=== PATIENT | female | born 1945 | race Caucasian/White ===

== ENCOUNTER → 2018-03-16 | Outpatient (CLI) | payer OTHER, MEDICARE | LOC: FIMAGING 10:37 | PROVIDERS: ATTEND Neurological Surgery | DX: Z13.828 Encounter for screening for other musculoskeletal disorder (principal); M21.751 Unequal limb length (acquired), right femur; M41.26 Other idiopathic scoliosis, lumbar region; M41.24 Other idiopathic scoliosis, thoracic region; M51.36 Other intervertebral disc degeneration, lumbar region ==

== ENCOUNTER → 2018-04-14 | Outpatient (CLI) | payer OTHER, MEDICARE | LOC: BHFA 09:00 | PROVIDERS: ATTEND Internal Medicine Cardiovascular Disease | DX: Z01.810 Encounter for preprocedural cardiovascular examination (principal); R00.1 Bradycardia, unspecified ==

== ENCOUNTER 2018-04-22 10:17 | Inpatient (IN) | payer OTHER, MEDICARE ==
[2018-04-22] MEDS ORDERED: ACETAMINOPHEN 325 MG TAB PO PRN (14:19)
[2018-04-22] MEDS ORDERED: DIAZEPAM 5 MG TAB PO PRN (14:19)
[2018-04-22] MEDS ORDERED: CARBOXYMETHYLCELLULOSE 1% 0.4 ML DROPERETTE EACHEYE PRN (14:19)
[2018-04-22] MEDS ORDERED: SCOPOLAMINE HYDROBROMIDE 1 MG/3 DAYS PATCH TD SCH (14:30)
[2018-04-22] MEDS: GABAPENTIN 100 MG CAP PO SCH ×2 (15:38→20:15)
[2018-04-22] MEDS ORDERED: POLYETHYLENE GLYCOL 3350 17 GM PKT PO SCH (16:00)
--- NOTE | 2018-04-22 16:41 | GHP ---
POST ADMISSION PHYSICIAN EVALUATION AND REHABILITATION TREATMENT PLAN. DATE OF ADMISSION: 04/22/2018 DATE OF EVALUATION: 04/22/2018. TIME OF EVALUATION: 1455. REFERRING FACILITY: [facility]. IMPAIRMENT GROUP: [id number]. DATE OF ONSET: 04/16/2018. DATE OF SURGERY: 04/22/2018. REFERRING PHYSICIAN: Dr. Watkins. CONSULTING PHYSICIAN: She had surgery with Dr. Kuhn of the neurosurgery service. REHABLITATION DIAGNOSIS: Debility status post lumbar spinal surgery. ETIOLOGIC DIAGNOSIS: Other nontraumatic spinal cord dysfunction. HISTORY OF PRESENT ILLNESS: This patient came to [facility] for elective surgery. She had intractable back pain and progressive bilateral lower extremity weakness. She had failed conservative therapy. She had a history of severe degenerative lumbar scoliosis and critical spinal stenosis. She underwent a T9 to iliac fusion with L1-L4 total lumbar interbody fusion. She had approximately 1600 cc of blood loss during surgery and required a postoperative transfusion for symptomatic hypotension. She had atrial fibrillation after her surgery. She was loaded on amiodarone and returned to normal sinus rhythm, and her metoprolol was transiently increased and then continued on her prior dose. She required a second transfusion on 04/20/2018. STUDIES AND LABS IN THE HOSPITAL ON THE DAY OF DISCHARGE: Her hemoglobin is 8.3 , hematocrit 24.9. This is slightly improved from the previous day. CBC otherwise is overall within normal limits. Serum chemistry on the day of discharge showed normal renal function and electrolytes but for a low anion gap of 3. She has an elevated glucose at 116. She has a low calcium of 8, possibly corresponding with a low albumin. Phosphorus and magnesium were normal. PRECAUTIONS: She is a fall risk and she has orthopedic spinal precautions for the back. ACTIVE COMORBIDITIES: She has the tier 3 comorbidity of morbid obesity. She otherwise has no active tier 1, tier 2 or tier 3 comorbidities. PAST MEDICAL HISTORY: 1. Obesity. 2. Hypertension. 3. Restless legs syndrome, with lower and upper extremity symptoms. 4. Dyslipidemia. PAST SURGICAL HISTORY: She has had a cholecystectomy, and as a child she had tonsils and adenoids removed. PRE-HOSPITAL MEDICATIONS: I do not have a list. CURRENT MEDICATIONS: 1. Acetaminophen 325 mg p.o. daily p.r.n. 2. Artificial Tears 1 drop each eye daily p.r.n. 3. Cholecalciferol 1000 units p.o. daily. 4. Enoxaparin 40 mg subcutaneous daily. 5. Famotidine 20 mg p.o. twice daily. 6. Gabapentin 200 mg p.o. three times daily. 7. Hydrochlorothiazide 12.5 mg p.o. daily. 8. Lisinopril 20 mg p.o. daily. 9. Methocarbamol 750 mg p.o. four times daily. 10. Metoprolol-XL 12.5 mg p.o. at bedtime. 11. Morphine sulfate extended release 15 mg p.o. twice daily. 12. Multivitamin daily. 13. Ondansetron 4 mg p.o. q.8 hours p.r.n. 14. Oxycodone 5 to 10 mg p.o. q.4 hours p.r.n. 15. Polyethylene glycol 17 g p.o. three times daily. 16. Pramipexole 0.25 mg p.o. twice daily at 1600 and 2100. 17. Scopolamine patch. 18. Senna/docusate 1-2 tabs p.o. twice daily. 19. Diazepam 5 mg p.o. q.4 hours also prescribed on hospital discharge, but I have discontinued this and I have discontinued the scopolamine. ALLERGIES: Listed to levofloxacin. PSYCHOSOCIAL HISTORY: She is . She lives with her . She has a daughter who lives out of state. She has worked as a certified medical transcriptionist. She is a nonsmoker and uses only occasional alcohol. There are 16 steps to enter their home. FAMILY HISTORY: Noncontributory. REVIEW OF SYSTEMS: She reports her pain level is 2/10. She was able to ambulate with assistance of the nurse to the bathroom without more severe pain. She denies cough or dyspnea though she is on oxygen and has not been on oxygen previously. She reports she sleeps well. She reports her symptoms of restless leg also involve her arms and she needs to take pramipexole at 1600 and again at 2100 to keep them controlled and to allow normal sleep. She has had constipation and nausea, but moved her bowels yesterday. She has dry mouth. She notes swelling in her legs. She is concerned about right lower extremity weakness. It seems to her that it is weaker than it was prior to surgery. She denies dysuria or urinary frequency. Otherwise, a 10-point review of systems is negative. PHYSICAL EXAMINATION: VITAL SIGNS: Vitals are not yet available in the chart, but nurse reported that her systolic blood pressure was 101. This morning in the hospital blood pressure was 117/58, heart rate was 60, respiratory rate was 12, oxygen saturation was 99% on 2 L. Temperature was 37.1 degrees centigrade. Her weight is 81.6 kg for a body mass index of 32.9. GENERAL: This is an obese woman lying on her side in bed with a nasal cannula for oxygen, cooperative and in no acute distress. HEENT: Extraocular movements are intact. Pupils are equal, round, reactive to light. Mucous membranes are somewhat dry. NECK: Supple. HEART: Regular rate and rhythm. There is a systolic murmur heard best at the left sternal border. LUNGS: Clear to auscultation bilaterally. ABDOMEN: Obese, soft, nontender, nondistended with normoactive bowel sounds and no hepatosplenomegaly. EXTREMITIES: There is 1 to 2+ edema bilaterally pretibial. There is no cyanosis or clubbing. Radial pulses are 2+ bilaterally. Dorsalis pedis pulses are 2+ on the right and trace to 1+ on the left. NEUROLOGIC: She is alert and oriented x3. Cranial nerves 2 -12 are grossly intact. She is weak in the right lower extremity. Hip flexor, does not have antigravity strength. Quadriceps is approximately 4/5. Hamstring is 3 to 4/5. Otherwise motor strength is normal. Sensation is intact to light touch. Deep tendon reflexes are 2+ bilaterally at the biceps, patella and Achilles tendons. CURRENT LEVEL OF FUNCTION PER THE PREADMISSION SCREEN: She was on regular diet. For grooming she required standby assist to contact guard assist. Dressing required total assist done seated. She was modified independent for jonathan care after toileting. Her toilet transfer required contact guard and voice cues. She was continent of bowel and bladder. For bed mobility, she required moderate assist with the head of bed elevated. Transfers were done with minimal assist and voice cues. She used a front-wheeled walker. Seated balance required standby assist. Standing balance required contact guard to minimal assist. Endurance was fair. She was able to ambulate 120 feet with a front-wheeled walker, minimal assist and voice cues. Cognition and communication were within normal limits. She was considered a fall risk. There is no significant change on today's exam from the pre-admission screen. IMPRESSION: This patient is a 72-year-old woman with a long-standing progressive low back pain and degenerative scoliosis, who had elective surgery to correct this condition on 04/16/2018. Hospital stay was complicated by blood loss anemia requiring transfusions x2, pain with titration and addition of opiates and gabapentin, nausea, which was ultimately treated with a scopolamine patch, constipation, which is resolved, and hypoxemia. She was eventually medically stabilized and participating in therapies and appropriate for inpatient rehabilitation. Her goal is to complete a rehabilitation stay and then discharge to home with her and any durable medical equipment that she might need. For a safe discharge she will need to achieve independence with eating and grooming and modified independence for dressing, bed mobility, and ambulation with the least restrictive device on both level and unlevel surfaces. She will need to be able to climb and descend 16 stairs. It is likely she will continue to require assistance for meal preparation, shopping, and household management. She will need to be medically stabilized, including adequate blood pressure and normal heart rate, to tolerate activity, and her anemia will be improving. She will have therapy with Physical Therapy and Occupational Therapy for 90 minutes per day on 5-7 days of the week. Her expected duration of stay is 7-10 days. It is anticipated that upon discharge, she will continue to benefit from outpatient therapy, including occupational therapy and physical therapy. PLAN: 1. Debility in an obese woman who has had a major lumbar surgery on 04/16/2018. PT and OT to optimize mobility and activities of daily living to the independent to modified independent level. 2. Edema and heart murmur. Most likely the edema is from fluid overload including fluids that she received to maintain blood pressure and transfusions x2. She had labs drawn today in the hospital. I will add on a BNP to evaluate for heart failure. Will reduce lisinopril dose and increase hydrochlorothiazide dose for tomorrow morning in order to facilitate diuresis while maintaining blood pressure. She reports a transient history of elevated creatinine and reduced GFR, but I do not find this on review of labs in her chart going as far back as 04/14/2018. 3. Obesity. This will complicate her recovery, especially with the task of being able to climb 16 stairs. She will have a silk screen operator consult. She reports that she has intentionally lost weight through dieting prior to her surgery. 4. Hypertension. We will continue antihypertensives but will change lisinopril and hydrochlorothiazide as mentioned above. 5. Transient atrial fibrillation during her hospitalization with return to normal sinus rhythm after dosing with amiodarone. Continue metoprolol. Presumably the atrial fibrillation was due to the stresses of surgery and anemia. However, with the presence of a heart murmur, she might have mitral regurgitation and large atria. There is no echocardiogram available in the medical record. She will be monitored for any return of irregular heartbeat. 6. Pain management. Continue morphine SR 15 mg twice daily, oxycodone p.r.n., gabapentin 200 mg three times daily and acetaminophen currently ordered at 325 mg p.o. daily p.r.n. She will be assessed for pain. Will change acetaminophen to 1000 mg three times daily scheduled. 7. Constipation and nausea. Given constipation and dry mouth, will discontinue the scopolamine patch, but continue ondansetron p.r.n. Polyethylene glycol has been prescribed three times daily. This seems excessive and will be changed to daily. Continue senna 1-2 tabs twice daily and monitor for effectiveness of bowel regimen. If she continues to have nausea and requires frequent dosing of on ondansetron, will consider restarting scopolamine patch. 8. Subjective leg weakness on the right. She is not sure she has informed Dr. Kuhn, the surgeon, of this symptom. We will contact Dr. Kuhn and discuss with him. 9. Prophylaxis. She has much reduced mobility and she is at high risk for DVT due to obesity and age. Continue enoxaparin 40 mg subcutaneous daily until her mobility improves. FOLLOWUP: She is to see neurosurgeon, Dr. Kuhn after discharge. Her primary care provider is Dr. Makayla Draper in [place]. /[id number]/MODL MTDD
[2018-04-22] MEDS: PRAMIPEXOLE 0.25 MG TAB PO SCH ×2 (16:43→20:47)
[2018-04-22] MEDS: ACETAMINOPHEN 500 MG TAB PO SCH ×2 (16:44→20:15)
--- NOTE | 2018-04-22 17:09 | PDOREHIP ---
Admission [facility] - Admission - 3 Day Assessment Period Admission Date/Day 1: 04/22/18 Day 2: 04/23/18 Day 3: 04/24/18 - Active Diagnoses Comorbidities and Co-existing Conditions at Admission: 18691. None of the Above - Skin Conditions Unhealed Pressure Ulcer (1 or more/Stage 1 or >)-Admission: 0. No
[2018-04-22] MEDS: FAMOTIDINE 20 MG TAB PO SCH (20:15)
[2018-04-22] MEDS: METOPROLOL SUCCINATE XR 25 MG TAB PO SCH (20:16)
[2018-04-22] MEDS: SENNOSIDES/DOCUSATE SODIUM TAB PO SCH (20:20)
[2018-04-22] MEDS: morphINE SR 15 MG TAB PO SCH (20:46)
[2018-04-23] MEDS: oxyCODONE IR 5 MG TAB PO PRN ×2 (06:24→12:25)
[2018-04-23] MEDS: GABAPENTIN 100 MG CAP PO SCH ×3 (08:50→20:31)
[2018-04-23] MEDS: ENOXAPARIN 40 MG/0.4 ML SYR SC SCH (08:50)
[2018-04-23] MEDS: FAMOTIDINE 20 MG TAB PO SCH ×2 (08:50→22:20)
[2018-04-23] MEDS: HYDROCHLOROTHIAZIDE 25 MG TAB PO SCH (08:50)
[2018-04-23] MEDS: CHOLECALCIFEROL VIT D3 1,000 UNITS TAB PO SCH (08:50)
[2018-04-23] MEDS: morphINE SR 15 MG TAB PO SCH ×2 (08:50→20:29)
[2018-04-23] MEDS: LISINOPRIL 10 MG TAB PO SCH (08:50)
[2018-04-23] MEDS: ACETAMINOPHEN 500 MG TAB PO SCH ×3 (08:50→20:31)
[2018-04-23] MEDS: SENNOSIDES/DOCUSATE SODIUM TAB PO SCH ×2 (08:50→20:28)
[2018-04-23] MEDS: MULTIVITAMINS 1 EACH TAB PO SCH (08:50)
[2018-04-23] MEDS ORDERED: LISINOPRIL 20 MG TAB PO SCH (09:00)
[2018-04-23] MEDS ORDERED: Herbals/Supplements -Info Only PO SCH (09:00)
[2018-04-23] MEDS ORDERED: HYDROCHLOROTHIAZIDE 25 MG TAB PO SCH (09:00)
[2018-04-23] MEDS: POLYETHYLENE GLYCOL 3350 17 GM PKT PO SCH (10:17)
--- NOTE | 2018-04-23 12:12 | SOAPPROG ---
SOAP Progress Note Assessment/Plan: Assessment: Debility in an obese woman who had a major back surgery on 04/16/2018. * PT and OT to optimize mobility and activities of daily living to the independent to modified independent level. Edema and heart murmur. Most likely the edema is from fluid overload, including fluids that she received in the hospital to maintain blood pressure, and transfusions x2. Also a component of CHF, with elevated BNP on labs 2017. * Reduced lisinopril from 20 mg to 10 mg q.day starting 04/23/2018, and increased hydrochlorothiazide from 12.5 to 25 mg q.day. * Initiate compression stockings 04/23/2018. * Consider furosemide. * Daily weights. Hypertension. Adequate control. Pain management. Continue morphine SR 15 mg twice daily, oxycodone p.r.n., gabapentin 200 mg three times daily and acetaminophen to 1000 mg three times daily scheduled. Constipation and nausea. * Continue senna 1-2 tabs twice daily and polyethylene glycol daily. Monitor for effectiveness of bowel regimen. * Scopolamine patch discontinued due to dry mouth consultation. Ondansetron is available p.r.n. * With bowels moving, observe for resolution of abdominal discomfort. Dry mouth. Likely caused by opiates and gabapentin. Trial of Biotene starting 04/23/2018. Subjective leg weakness on the right. She is not sure she has informed Dr. Kuhn, the surgeon, of this symptom. * D/W ROSALIE Hadley for Dr. Curtis. If it worsens, would get MRI to rule out abnormal fluid collection etc. Obesity. This will complicate her recovery, especially with the task of being able to climb 16 stairs. She will have a lining maker consult. She reports that she has intentionally lost weight through dieting prior to her surgery. Transient atrial fibrillation during her hospitalization with return to normal sinus rhythm after dosing with amiodarone. Continue metoprolol. Monitor for irregular heartbeat. Prophylaxis. She has much reduced mobility and she is at high risk for DVT due to obesity and age. Continue enoxaparin 40 mg subcutaneous daily until her mobility improves. FOLLOWUP: She is to see neurosurgeon, Dr. Kuhn after discharge. Her primary care provider is Dr. Makayla Draper in [place]. 04/23/18 16:01 Subjective: Has back pain along the incision. Had right lower quadrant pain earlier today bowels moved again today currently she is not experiencing abdominal pain. Concerned that her tongue looked to read and still has dry mouth, though it is a little bit better with the discontinuation of the scopolamine patch. Notes that her legs are still swollen. Objective: Vital Signs Temp Pulse Resp BP Pulse Ox 37.2 C 59 L 18 117/59 L 94 04/23/18 08:00 04/23/18 08:00 04/23/18 08:00 04/23/18 08:50 04/23/18 08:00 04/22/18 04/23/18 04/24/18 05:59 05:59 05:59 Intake Total 850 Output Total 1650 Balance -800 Physical Exam - Physical Exam General Appearance: WD/WN, alert, no apparent distress, obese Respiratory: normal breath sounds, No crackles, No rhonchi, No wheezing Cardiac/Chest: regular rate, rhythm, edema (2+ bilateral pretibial), JVD, systolic murmur (The sternal border) Skin: normal color, warm/dry Neuro/Psych: no motor/sensory deficits, alert, normal mood/affect, oriented x 3 ICD10 Worksheet Patient Problems: Problems Problem Status Onset Fusion of spine of thoracolumbar region Acute
[2018-04-23] MEDS: PRAMIPEXOLE 0.25 MG TAB PO SCH ×2 (15:16→22:20)
[2018-04-23] MEDS: ONDANSETRON DISINTEGRATING 4 MG TAB PO PRN (20:28)
[2018-04-23] MEDS: METOPROLOL SUCCINATE XR 25 MG TAB PO SCH (20:29)
[2018-04-23] MEDS: BIOTENE DRY MOUTH ORAL RINSE 237 ML BTL MM PRN (23:07)
[2018-04-24] MEDS: oxyCODONE IR 5 MG TAB PO PRN ×2 (02:19→20:37)
[2018-04-24] MEDS: BIOTENE DRY MOUTH ORAL RINSE 237 ML BTL MM PRN ×2 (02:26→16:04)
[2018-04-24] MEDS: FAMOTIDINE 20 MG TAB PO SCH ×2 (08:12→20:31)
[2018-04-24] MEDS: ONDANSETRON DISINTEGRATING 4 MG TAB PO PRN ×2 (08:12→22:35)
[2018-04-24] MEDS: GABAPENTIN 100 MG CAP PO SCH ×3 (08:12→20:31)
[2018-04-24] MEDS: SENNOSIDES/DOCUSATE SODIUM TAB PO SCH ×2 (08:13→20:30)
[2018-04-24] MEDS: ACETAMINOPHEN 500 MG TAB PO SCH ×3 (08:13→16:13)
[2018-04-24] MEDS: MULTIVITAMINS 1 EACH TAB PO SCH (08:14)
[2018-04-24] MEDS: HYDROCHLOROTHIAZIDE 25 MG TAB PO SCH (08:14)
[2018-04-24] MEDS: ENOXAPARIN 40 MG/0.4 ML SYR SC SCH (08:14)
[2018-04-24] MEDS: CHOLECALCIFEROL VIT D3 1,000 UNITS TAB PO SCH (08:14)
[2018-04-24] MEDS: morphINE SR 15 MG TAB PO SCH ×2 (08:14→21:02)
[2018-04-24] MEDS: LISINOPRIL 10 MG TAB PO SCH (08:16)
[2018-04-24] MEDS: POLYETHYLENE GLYCOL 3350 17 GM PKT PO SCH (09:48)
--- NOTE | 2018-04-24 12:21 | SOAPPROG ---
SOAP Progress Note Assessment/Plan: Assessment: Debility in an obese woman who had a major back surgery on 04/16/2018. * Initial functional independence measure 73. She needs moderate assistance for bed mobility. Transfers with PT are done with contact guard assist to standby assist. She ambulated 60 ft with a front wheeled walker standby assist. She needed help for managing her oxygen. She negotiated 3 stairs with 2 rails. She showered with minimal assistance for drag her feet. She was seated. Upper body dressing requires setup and lower body dressing requires moderate to maximal assist. * Continue PT and OT to optimize mobility and activities of daily living to the independent to modified independent level. Edema and heart murmur. Most likely the edema is from fluid overload, including fluids that she received in the hospital to maintain blood pressure, and transfusions x2. Also a component of CHF, with elevated BNP on labs 2017. * Reduced lisinopril from 20 mg to 10 mg q.day starting 04/23/2018, and increased hydrochlorothiazide from 12.5 to 25 mg q.day. * Initiate compression stockings 04/23/2018. * Consider furosemide. * Daily weights. Which continue to slowly decline consistent with gradual diuresis. Hypertension. Adequate control. Check orthostatics. Pain management. Continue morphine SR 15 mg twice daily, oxycodone p.r.n., gabapentin 200 mg three times daily and acetaminophen to 1000 mg three times daily scheduled. Abdominal pain. Get abdominal x-ray today, as well as CBC, CMP and lipase. Constipation and nausea. * Continue senna 1-2 tabs twice daily and polyethylene glycol daily. Monitor for effectiveness of bowel regimen. * Scopolamine patch discontinued due to dry mouth consultation. Ondansetron is available p.r.n. * With bowels moving, observe for resolution of abdominal discomfort. Dry mouth. Likely caused by opiates and gabapentin. Trial of Biotene starting 04/23/2018. Subjective leg weakness on the right. She is not sure she has informed Dr. Kuhn, the surgeon, of this symptom. * D/W ROSALIE Hadley for Dr. Curtis. If it worsens, would get MRI to rule out abnormal fluid collection etc. Obesity. This will complicate her recovery, especially with the task of being able to climb 16 stairs. She will have a fraud prevention analyst consult. She reports that she has intentionally lost weight through dieting prior to her surgery. Transient atrial fibrillation during her hospitalization with return to normal sinus rhythm after dosing with amiodarone. Continue metoprolol. Monitor for irregular heartbeat. Prophylaxis. She has much reduced mobility and she is at high risk for DVT due to obesity and age. Continue enoxaparin 40 mg subcutaneous daily until her mobility improves. DISPOSITION: Attended staffing, 15 min. Discussed with case management, nursing, dietitian, PT, OT. Lives with , 16 steps to enter. Local daughter is involved in her care. Tentative discharge date set for 05/01/2018. She will have home PT and O T. FOLLOWUP: She is to see neurosurgeon, Dr. Kuhn, scheduled for 2017 but this can be delayed until after her discharge. Her primary care provider is Dr. Makayla Draper in [place]. 04/24/18 12:05 Subjective: Had abdominal pain overnight. Requested ice from nurse. Pain was improved when she pressed on her right abdomen with ice. Pole bowels are moving. Has had some nausea yesterday evening and this morning and was treated with ondansetron. Has back pain especially when she moves from seated to supine. Otherwise without complaints. No fevers or chills, no cough or dyspnea. Objective: Vital Signs Temp Pulse Resp BP Pulse Ox 36.9 C 87 18 124/47 H 90 L 04/24/18 06:06 04/24/18 06:06 04/24/18 06:06 04/24/18 08:16 04/24/18 06:08 04/23/18 04/24/18 04/25/18 05:59 05:59 05:59 Intake Total 850 700 Output Total 1650 1150 300 Balance -800 -450 -300 - Time Spent With Patient Time Spent With Patient: Greater than 35 min floor time today, including more than 50% of time in coordination of care during staffing, and counseling patient and . Physical Exam - Physical Exam General Appearance: WD/WN, alert, no apparent distress Respiratory: No respiratory distress, No accessory muscle use Cardiac/Chest: edema (2+ bilateral pretibial) Abdomen: normal bowel sounds, soft, other (Mildly tender to diffuse left and right lower quadrants.), No distended Skin: normal color, warm/dry, other (Incision with Steri-Strips, clean and intact. Mild serous drainage on bandage in the lower lumbar area.) Neuro/Psych: no motor/sensory deficits, alert, normal mood/affect, oriented x 3 ICD10 Worksheet Patient Problems: Problems Problem Status Onset Fusion of spine of thoracolumbar region Acute
[2018-04-24 14:38] LABS: PLATELET COUNT 268 10^3/uL (150-400)
[2018-04-24] MEDS: PRAMIPEXOLE 0.25 MG TAB PO SCH ×2 (16:04→20:30)
[2018-04-24] MEDS: METOPROLOL SUCCINATE XR 25 MG TAB PO SCH (20:43)
[2018-04-24] MEDS ORDERED: IOPAMIDOL (ISOVUE 370) 100 ML BTL IV ONE (21:21)
[2018-04-25] MEDS: BISACODYL 10 MG SUPP PR PRN (05:24)
[2018-04-25] MEDS: oxyCODONE IR 5 MG TAB PO PRN (06:42)
[2018-04-25 09:04] LABS: PLATELET COUNT 251 10^3/uL (150-400)
[2018-04-25] MEDS: ENOXAPARIN 40 MG/0.4 ML SYR SC SCH (09:04)
[2018-04-25] MEDS: CHOLECALCIFEROL VIT D3 1,000 UNITS TAB PO SCH (09:04)
[2018-04-25] MEDS: HYDROCHLOROTHIAZIDE 25 MG TAB PO SCH (09:05)
[2018-04-25] MEDS: FAMOTIDINE 20 MG TAB PO SCH ×2 (09:05→20:19)
[2018-04-25] MEDS: GABAPENTIN 100 MG CAP PO SCH ×3 (09:05→20:19)
[2018-04-25] MEDS: LISINOPRIL 10 MG TAB PO SCH (09:06)
[2018-04-25] MEDS: morphINE SR 15 MG TAB PO SCH ×2 (09:07→20:18)
[2018-04-25] MEDS: MULTIVITAMINS 1 EACH TAB PO SCH (09:07)
[2018-04-25] MEDS: POLYETHYLENE GLYCOL 3350 17 GM PKT PO SCH (09:09)
[2018-04-25] MEDS: SENNOSIDES/DOCUSATE SODIUM TAB PO SCH ×2 (09:10→20:19)
--- NOTE | 2018-04-25 10:30 | SOAPPROG ---
SOAP Progress Note Assessment/Plan: Assessment: Debility in an obese woman who had a major back surgery on 04/16/2018. * Initial functional independence measure 73. She needs moderate assistance for bed mobility. Transfers with PT are done with contact guard assist to standby assist. She ambulated 60 ft with a front wheeled walker standby assist. She needed help for managing her oxygen. She negotiated 3 stairs with 2 rails. She showered with minimal assistance for drying her feet. She was seated. Upper body dressing requires setup and lower body dressing requires moderate to maximal assist. * Continue PT and OT to optimize mobility and activities of daily living to the independent to modified independent level. Edema and heart murmur. Most likely the edema is from fluid overload, including fluids that she received in the hospital to maintain blood pressure, and transfusions x2. Also a component of CHF, with elevated BNP on labs 2017. * Reduced lisinopril from 20 mg to 10 mg q.day starting 04/23/2018, and increased hydrochlorothiazide from 12.5 to 25 mg q.day. * Initiate compression stockings 04/23/2018. * Consider furosemide. * Daily weights. Which continue to slowly decline consistent with gradual diuresis, 2.7 kg since admission as of 04/25/2018. Hypertension. Adequate control. Pain management. Continue morphine SR 15 mg twice daily, oxycodone p.r.n., gabapentin 200 mg three times daily and acetaminophen to 1000 mg three times daily scheduled. Abdominal pain. * Abdominal x-ray 04/24/2018 showed constipation. She had mild transaminase elevation on labs. * Obtained chest and abdominal CT yesterday 04/24/2018. She has mild pleural effusions and atelectasis but no pulmonary embolus and no other intrathoracic abnormalities, and moderate stool, minimal pelvic ascites, but no other abnormalities. Normal liver size and no steatosis. * Transaminases improving today 04/25/2018. Anemia, post surgical, and status post transfusions x2. * Improving on labs 04/24/2018; decline on labs 04/25/2018, with hemoglobin 8.7 and hematocrit 26.3 but still better than her last determination in the hospital on 04/22/2018 when hemoglobin was 8.3 and and hematocrit was 24.9. Continue to monitor. Check stool Hemoccult. Check reticulocyte count. Constipation and nausea. * Continue senna 1-2 tabs twice daily and polyethylene glycol daily. Monitor for effectiveness of bowel regimen. * Scopolamine patch discontinued due to dry mouth consultation. Ondansetron is available p.r.n. * With bowels moving, observe for resolution of abdominal discomfort. Dry mouth. Likely caused by opiates and gabapentin. Trial of Biotene starting 04/23/2018. Subjective leg weakness on the right. She is not sure she has informed Dr. Kuhn, the surgeon, of this symptom. * D/W ROSALIE Hadley for Dr. Curtis. If it worsens, would get MRI to rule out abnormal fluid collection etc. Obesity. This will complicate her recovery, especially with the task of being able to climb 16 stairs. She will have a chemist organic consult. She reports that she has intentionally lost weight through dieting prior to her surgery. Transient atrial fibrillation during her hospitalization with return to normal sinus rhythm after dosing with amiodarone. Continue metoprolol. Monitor for irregular heartbeat. Prophylaxis. She has much reduced mobility and she is at high risk for DVT due to obesity and age. Continue enoxaparin 40 mg subcutaneous daily until her mobility improves. DISPOSITION: Lives with , 16 steps to enter. Local daughter is involved in her care. Tentative discharge date set for 05/01/2018. She will have home PT and O T. FOLLOWUP: She is to see neurosurgeon, Dr. Kuhn, scheduled for 2017 but this can be delayed until after her discharge. Her primary care provider is Dr. Makayla Draper in [place]. 04/25/18 10:22 Subjective: Had some right upper quadrant abdominal pain again early this morning. Otherwise without complaint. No cough or dyspnea, no fevers or chills. Had large bowel movement after suppository. Objective: Vital Signs Temp Pulse Resp BP Pulse Ox 36.9 C 64 18 116/41 L 96 04/24/18 20:00 04/25/18 05:47 04/25/18 05:47 04/25/18 09:06 04/25/18 05:47 Laboratory Results 04/25/18 06:00 04/25/18 06:00 04/24/18 04/25/18 04/26/18 05:59 05:59 05:59 Intake Total 700 500 Output Total 1157 6296 Balance -450 -1500 Physical Exam - Physical Exam General Appearance: WD/WN, alert, no apparent distress, obese Respiratory: normal breath sounds, No crackles, No rhonchi, No wheezing Cardiac/Chest: regular rate, rhythm, edema (2+ bilateral pretibial), systolic murmur Skin: normal color, warm/dry Neuro/Psych: no motor/sensory deficits, alert, normal mood/affect, oriented x 3 ICD10 Worksheet Patient Problems: Problems Problem Status Onset Fusion of spine of thoracolumbar region Acute
[2018-04-25] MEDS ORDERED: traMADol 50 MG TAB PO ONE (12:45)
[2018-04-25] MEDS: PRAMIPEXOLE 0.25 MG TAB PO SCH ×2 (17:04→20:18)
[2018-04-25] MEDS: METOPROLOL SUCCINATE XR 25 MG TAB PO SCH (20:18)
[2018-04-26] MEDS: traMADol 50 MG TAB PO PRN (05:33)
[2018-04-26] MEDS: ONDANSETRON DISINTEGRATING 4 MG TAB PO PRN (06:09)
[2018-04-26] MEDS: morphINE SR 15 MG TAB PO SCH ×2 (09:06→20:44)
[2018-04-26] MEDS: LISINOPRIL 10 MG TAB PO SCH (09:15)
[2018-04-26] MEDS: POLYETHYLENE GLYCOL 3350 17 GM PKT PO SCH (10:11)
[2018-04-26] MEDS: GABAPENTIN 100 MG CAP PO SCH ×3 (10:11→20:42)
[2018-04-26] MEDS: ENOXAPARIN 40 MG/0.4 ML SYR SC SCH (10:11)
[2018-04-26] MEDS: CHOLECALCIFEROL VIT D3 1,000 UNITS TAB PO SCH (10:12)
[2018-04-26] MEDS: FAMOTIDINE 20 MG TAB PO SCH ×2 (10:12→20:44)
[2018-04-26] MEDS: SENNOSIDES/DOCUSATE SODIUM TAB PO SCH ×2 (10:12→20:43)
[2018-04-26] MEDS: MULTIVITAMINS 1 EACH TAB PO SCH (10:12)
--- NOTE | 2018-04-26 12:43 | SOAPPROG ---
SOAP Progress Note Assessment/Plan: Assessment: Debility in an obese woman who had a major back surgery on 04/16/2018. * Initial functional independence measure 73 on 04/24/2018. She needs moderate assistance for bed mobility. Transfers with PT are done with contact guard assist to standby assist. She ambulated 60 ft with a front wheeled walker standby assist. She needed help for managing her oxygen. She negotiated 3 stairs with 2 rails. She showered with minimal assistance for drying her feet. She was seated. Upper body dressing requires setup and lower body dressing requires moderate to maximal assist. * Continue PT and OT to optimize mobility and activities of daily living to the independent to modified independent level. Edema and heart murmur. Most likely the edema is from fluid overload, including fluids that she received in the hospital to maintain blood pressure, and transfusions x2. Also a component of CHF, with elevated BNP on labs 2017. * Reduced lisinopril from 20 mg to 10 mg q.day starting 04/23/2018, and increased hydrochlorothiazide from 12.5 to 25 mg q.day. * Initiate compression stockings 04/23/2018. * Consider furosemide. * Daily weights continue to slowly decline consistent with gradual diuresis, 3.7 kg since admission as of 04/26/2018. Hypertension. Adequate control. Pain management. Continue morphine SR 15 mg twice daily, oxycodone p.r.n., and acetaminophen to 1000 mg three times daily scheduled. * Right leg pain overnight 04/25/2018-04/26/2018 may be neuropathic. Will increase gabapentin from 200 mg three times daily to 400 mg three times daily. Abdominal pain. * Resolved 04/26/2018. * Abdominal x-ray 04/24/2018 showed constipation. She had mild transaminase elevation on labs. * Obtained chest and abdominal CT yesterday 04/24/2018. She has mild pleural effusions and atelectasis but no pulmonary embolus and no other intrathoracic abnormalities, and moderate stool, minimal pelvic ascites, but no other abnormalities. Normal liver size and no steatosis. * Transaminases improving today 04/25/2018. Anemia, post surgical, and status post transfusions x2. * Improving on labs 04/24/2018; decline on labs 04/25/2018, with hemoglobin 8.7 and hematocrit 26.3 but still better than her last determination in the hospital on 04/22/2018 when hemoglobin was 8.3 and and hematocrit was 24.9. Continue to monitor. Check stool Hemoccult. Check reticulocyte count. Constipation and nausea. * Continue senna 1-2 tabs twice daily and polyethylene glycol daily. Monitor for effectiveness of bowel regimen. * Scopolamine patch discontinued due to dry mouth consultation. Ondansetron is available p.r.n. * With bowels moving, observe for resolution of abdominal discomfort. Dry mouth. Likely caused by opiates and gabapentin. Trial of Biotene starting 04/23/2018. Subjective leg weakness on the right. She is not sure she has informed Dr. Kuhn, the surgeon, of this symptom. * D/W ROS[facility] Hadley for Dr. Curtis. If it worsens, would get MRI to rule out abnormal fluid collection etc. Obesity. This will complicate her recovery, especially with the task of being able to climb 16 stairs. She will have a diver assistant consult. She reports that she has intentionally lost weight through dieting prior to her surgery. Transient atrial fibrillation during her hospitalization with return to normal sinus rhythm after dosing with amiodarone. Continue metoprolol. Monitor for irregular heartbeat. Prophylaxis. She has much reduced mobility and she is at high risk for DVT due to obesity and age. Continue enoxaparin 40 mg subcutaneous daily until her mobility improves. DISPOSITION: Lives with , 16 steps to enter. Local daughter is involved in her care. Tentative discharge date set for 05/01/2018. She will have home PT and O T. FOLLOWUP: She is to see neurosurgeon, Dr. Kuhn, scheduled for 2017 but this can be delayed until after her discharge. Her primary care provider is Dr. Makayla Draper in [place]. 04/26/18 12:41 Subjective: Had right leg pain overnight. Could not find a comfortable position. Pain radiated from hip to calf, down the outside of her leg. She had no abdominal pain. Had bowel movement this morning after suppository. Objective: Vital Signs Temp Pulse Resp BP Pulse Ox 36.6 C 77 16 99/70 L 96 04/26/18 06:43 04/26/18 06:43 04/26/18 06:43 04/26/18 09:15 04/26/18 06:43 Laboratory Results 04/25/18 10:30 04/25/18 06:00 04/25/18 04/26/18 04/27/18 05:59 05:59 05:59 Intake Total 500 1050 240 Output Total 2000 1050 200 Balance -1500 0 40 Physical Exam - Physical Exam General Appearance: WD/WN, alert, no apparent distress Respiratory: normal breath sounds, No crackles, No rhonchi, No wheezing Cardiac/Chest: regular rate, rhythm, edema (2+ bilateral lower extremities), JVD , systolic murmur Skin: normal color, warm/dry Neuro/Psych: no motor/sensory deficits, alert, normal mood/affect, oriented x 3 ICD10 Worksheet Patient Problems: Problems Problem Status Onset Fusion of spine of thoracolumbar region Acute
[2018-04-26] MEDS: HYDROCHLOROTHIAZIDE 25 MG TAB PO SCH (13:23)
[2018-04-26] MEDS: BISACODYL 10 MG SUPP PR PRN (16:15)
[2018-04-26] MEDS: PRAMIPEXOLE 0.25 MG TAB PO SCH ×2 (16:20→20:43)
[2018-04-26] MEDS: METOPROLOL SUCCINATE XR 25 MG TAB PO SCH (20:43)
[2018-04-27] MEDS: traMADol 50 MG TAB PO PRN ×2 (07:26→20:30)
[2018-04-27] MEDS: GABAPENTIN 100 MG CAP PO SCH ×3 (07:56→21:03)
[2018-04-27] MEDS: SENNOSIDES/DOCUSATE SODIUM TAB PO SCH ×2 (07:56→20:21)
[2018-04-27] MEDS: MULTIVITAMINS 1 EACH TAB PO SCH (07:56)
[2018-04-27] MEDS: POLYETHYLENE GLYCOL 3350 17 GM PKT PO SCH (07:56)
[2018-04-27] MEDS: FAMOTIDINE 20 MG TAB PO SCH ×2 (07:57→20:20)
[2018-04-27] MEDS: ENOXAPARIN 40 MG/0.4 ML SYR SC SCH (07:57)
[2018-04-27] MEDS: CHOLECALCIFEROL VIT D3 1,000 UNITS TAB PO SCH (07:57)
[2018-04-27] MEDS: LISINOPRIL 10 MG TAB PO SCH (08:02)
[2018-04-27] MEDS: morphINE SR 15 MG TAB PO SCH ×2 (08:04→20:21)
[2018-04-27] MEDS ORDERED: HYDROCHLOROTHIAZIDE 25 MG TAB PO SCH (09:34)
--- NOTE | 2018-04-27 09:39 | SOAPPROG ---
SOAP Progress Note Assessment/Plan: Assessment: Debility in an obese woman who had a major back surgery on 04/16/2018. * Initial functional independence measure 73 on 04/24/2018. She needs moderate assistance for bed mobility. Transfers with PT are done with contact guard assist to standby assist. She ambulated 60 ft with a front wheeled walker standby assist. She needed help for managing her oxygen. She negotiated 3 stairs with 2 rails. She showered with minimal assistance for drying her feet. She was seated. Upper body dressing requires setup and lower body dressing requires moderate to maximal assist. * Ambulation improved to 150 ft x 1 and 50 ft x2 on 04/26/2018. * Continue PT and OT to optimize mobility and activities of daily living to the independent to modified independent level. Edema and heart murmur. Most likely the edema is from fluid overload, including fluids that she received in the hospital to maintain blood pressure, and transfusions x2. Also a component of CHF, with elevated BNP on labs 2017. * Reduced lisinopril from 20 mg to 10 mg q.day starting 04/23/2018, and increased hydrochlorothiazide from 12.5 to 25 mg q.day. With blood pressure running low, decrease lisinopril to 5 mg and hydrochlorothiazide to 12.5 mg starting 2017. * Initiate compression stockings 04/23/2018. * Daily weights continue to slowly decline consistent with gradual diuresis, 4.9 kg since admission as of 04/26/2018. * Repeat BMP 04/29/2018. Hypertension. Blood pressure running low. Starting 04/28/2018 her regimen will be metoprolol 12.5 mg twice daily, lisinopril 5 mg q.day and hydrochlorothiazide 12.5 mg q.day. Check labs 04/29/2018 Pain management. Continue morphine SR 15 mg twice daily, oxycodone p.r.n., and acetaminophen to 1000 mg three times daily scheduled. * Right leg pain overnight 04/25/2018-04/26/2018 may be neuropathic. Will increase gabapentin from 200 mg three times daily to 400 mg three times daily. * No oxycodone use since the morning of 04/25/2018. Will discontinue daytime morphine extended release starting 04/28/2018. Continue bedtime dose for now. Abdominal pain. * Abdominal x-ray 04/24/2018 showed constipation. She had mild transaminase elevation on labs. * Obtained chest and abdominal CT yesterday 04/24/2018. She has mild pleural effusions and atelectasis but no pulmonary embolus and no other intrathoracic abnormalities, and moderate stool, minimal pelvic ascites, but no other abnormalities. Normal liver size and no steatosis. * Transaminases improving today 04/25/2018. Anemia, post surgical, and status post transfusions x2. * Improving on labs 04/24/2018; decline on labs 04/25/2018, with hemoglobin 8.7 and hematocrit 26.3 but still better than her last determination in the hospital on 04/22/2018 when hemoglobin was 8.3 and and hematocrit was 24.9. Continue to monitor. Stool Hemoccult negative x1. Brisk reticulocytosis. * Repeat CBC 04/29/2018. Constipation and nausea. * Continue senna 1-2 tabs twice daily and polyethylene glycol daily. Monitor for effectiveness of bowel regimen. * Scopolamine patch discontinued due to dry mouth consultation. Ondansetron is available p.r.n. * With bowels moving, observe for resolution of abdominal discomfort. Dry mouth. Likely caused by opiates and gabapentin. Trial of Biotene starting 04/23/2018. Subjective leg weakness on the right. She is not sure she has informed Dr. Kuhn, the surgeon, of this symptom. * D/W ROSALIE Hadley for Dr. Curtis. If it worsens, would get MRI to rule out abnormal fluid collection etc. Obesity. This will complicate her recovery, especially with the task of being able to climb 16 stairs. She will have a marketing program manager consult. She reports that she has intentionally lost weight through dieting prior to her surgery. Transient atrial fibrillation during her hospitalization with return to normal sinus rhythm after dosing with amiodarone. Continue metoprolol. Monitor for irregular heartbeat. Prophylaxis. She has much reduced mobility and she is at high risk for DVT due to obesity and age. Continue enoxaparin 40 mg subcutaneous daily until her mobility improves. DISPOSITION: Lives with , 16 steps to enter. Local daughter is involved in her care. Tentative discharge date set for 05/01/2018. She will have home PT and O T. FOLLOWUP: She is to see neurosurgeon, Dr. Kuhn, scheduled for 2017 but this can be delayed until after her discharge. Her primary care provider is Dr. Makayla Draper in [place]. 04/27/18 09:39 Subjective: She has fatigue after multiple therapy sessions which are scheduled consecutively. She still has some abdominal pain which has shifted more central and is no longer on the right side. No cough or dyspnea. Pain is adequately controlled and she is not used oxycodone since a morning dose 2 days ago. Objective: Vital Signs Temp Pulse Resp BP Pulse Ox 36.6 C 80 14 94/49 L 92 04/26/18 19:52 04/26/18 20:43 04/26/18 19:52 04/27/18 08:02 04/26/18 19:52 Laboratory Results 04/25/18 10:30 04/25/18 06:00 04/26/18 04/27/18 04/28/18 05:59 05:59 05:59 Intake Total 1050 1690 Output Total 1050 200 Balance 0 1490 Physical Exam - Physical Exam General Appearance: WD/WN, alert, no apparent distress Respiratory: No accessory muscle use, No decreased breath sounds Cardiac/Chest: edema (1+ bilateral lower extremities) Skin: normal color, warm/dry Neuro/Psych: no motor/sensory deficits, alert, normal mood/affect, oriented x 3 ICD10 Worksheet Patient Problems: Problems Problem Status Onset Fusion of spine of thoracolumbar region Acute
[2018-04-27] MEDS: HYDROCHLOROTHIAZIDE 25 MG TAB PO SCH (11:15)
[2018-04-27] MEDS: BISACODYL 10 MG SUPP PR PRN (14:49)
[2018-04-27] MEDS: PRAMIPEXOLE 0.25 MG TAB PO SCH ×2 (17:19→20:20)
[2018-04-27] MEDS: METOPROLOL SUCCINATE XR 25 MG TAB PO SCH (20:20)
[2018-04-28] MEDS: oxyCODONE IR 5 MG TAB PO PRN ×2 (02:26→21:30)
[2018-04-28] MEDS: METHOCARBAMOL 750 MG TAB PO PRN ×2 (02:26→21:30)
[2018-04-28] MEDS: ENOXAPARIN 40 MG/0.4 ML SYR SC SCH (09:00)
[2018-04-28] MEDS: GABAPENTIN 100 MG CAP PO SCH ×3 (09:00→20:53)
[2018-04-28] MEDS: MULTIVITAMINS 1 EACH TAB PO SCH (09:01)
[2018-04-28] MEDS: CHOLECALCIFEROL VIT D3 1,000 UNITS TAB PO SCH (09:01)
[2018-04-28] MEDS: SENNOSIDES/DOCUSATE SODIUM TAB PO SCH ×2 (09:01→20:49)
[2018-04-28] MEDS: POLYETHYLENE GLYCOL 3350 17 GM PKT PO SCH (09:01)
[2018-04-28] MEDS: FAMOTIDINE 20 MG TAB PO SCH ×2 (09:01→20:47)
[2018-04-28] MEDS: LISINOPRIL 10 MG TAB PO SCH (12:20)
--- NOTE | 2018-04-28 13:06 | SOAPPROG ---
SOAP Progress Note Assessment/Plan: 72-year-old woman with comorbid obesity now status post an elective back surgery on 04/16/[address] Kuhn to correct degenerative scoliosis with a complicated postoperative course including blood loss anemia, pain control, right leg weakness and pain, and heart failure. Today's update: A total of 120 min was spent on the floor in the care of the patient, the majority of which was spent counseling and coordination of care regarding discussion of care plan with family, therapists, team meeting, as well as directly with the patient. Today fecal occult blood test has been negative x3. Family concerned about ongoing constipation, checking for retained stool with a KUB, would treat aggressively likely with Mag citrate if retained stool present. She has had several bowel movements lately. Plan to continue diuresis tomorrow morning with 20 mg of Lasix x1, holding beta-ronak and hydrochlorothiazide for now to minimize effect on blood pressure. Patient continues to be hypoxic at times, likely related to fluid status, continue diuresis and monitor. She may need to go home with home oxygen initially. Also discussed at length with family who was concerned that the patient may not be able to have all of her care needs met at home with the help of her . Consideration being given to long term facility discharge in the intermediate time frame. Asked family to identify a single point of contact to enhance communication. I also spoke with Dr. Long about ongoing pain in the right leg, this has been improving and Dr. Kuhn is aware, continue to monitor. Family is aware of this assessment. Additional issues reviewed without change today include anemia, dry mouth, obesity, transient atrial fibrillation, prophylaxis. Continue to monitor these issues. 04/28/18 12:55 04/28/18 13:06 Subjective: Chief complaint: Right leg weakness and sensory changes after surgery and rehab progress No acute events overnight. Patient denies any new shortness of breath or chest pain, no new numbness, tingling, or weakness. The family expresses concern about right leg weakness and sensory changes that initially presented after surgery. Please see assessment plan, but this is been followed up with the neurosurgery team and Dr. Kuhn who are monitoring this problem without plan for intervention at this point. Additionally, I spoke at length with family members about their ongoing medical concerns and medical stability. Family and patient were reassured that she would not discharge if she was not medically ready. Plan would be to hand off medical issues to the primary care physician for ongoing outpatient monitoring. Also, she would likely have home therapies and possibly home nursing if needed. Family did raise concerns that care might not be able to be met with the at home, they are open to long term facility on discussion with 1 of the daughters, Uma, who was also a physician. Objective: Vital Signs Temp Pulse Resp BP Pulse Ox 36.7 C 58 L 14 96/58 L 93 04/28/18 08:00 04/28/18 08:00 04/27/18 20:00 04/28/18 12:20 04/28/18 08:00 Laboratory Results 04/25/18 10:30 04/25/18 06:00 04/27/18 04/28/18 04/29/18 05:59 05:59 05:59 Intake Total 1690 1100 360 Output Total 200 300 Balance 1490 1100 60 Physical Exam - Physical Exam General Appearance: alert, no apparent distress, obese, No anxiety EENT: No scleral icterus (R), No scleral icterus (L) Respiratory: No respiratory distress, No accessory muscle use, No wheezing Cardiac/Chest: normal peripheral pulses, regular rate, rhythm, edema (2+ bilateral lower extremity) Skin: normal color, warm/dry, No cyanosis, No diaphoresis Extremities: non-tender, pedal edema, No Rommel's sign Neuro/Psych: alert, normal mood/affect, other (Strength in bilateral lower limbs was 5/5 and ankle dorsiflexion, plantar flexion, EHL, and 5/5 in the left knee extensor but 4/5 in the right knee extensor. She stated that that was limited by some shaking on the right leg rather than true weakness or pain. She had more strength on repeated efforts.) ICD10 Worksheet Patient Problems: Problems Problem Status Onset Fusion of spine of thoracolumbar region Acute
[2018-04-28] MEDS: PRAMIPEXOLE 0.25 MG TAB PO SCH ×2 (17:26→20:48)
[2018-04-28] MEDS: traMADol 50 MG TAB PO PRN (18:24)
[2018-04-28] MEDS: morphINE SR 15 MG TAB PO SCH (20:47)
[2018-04-29] MEDS: GABAPENTIN 100 MG CAP PO SCH ×3 (08:21→21:03)
[2018-04-29] MEDS: SENNOSIDES/DOCUSATE SODIUM TAB PO SCH ×2 (08:21→21:05)
[2018-04-29] MEDS: CHOLECALCIFEROL VIT D3 1,000 UNITS TAB PO SCH (08:21)
[2018-04-29] MEDS: MULTIVITAMINS 1 EACH TAB PO SCH (08:21)
[2018-04-29] MEDS: FAMOTIDINE 20 MG TAB PO SCH ×2 (08:22→21:03)
[2018-04-29] MEDS: LISINOPRIL 10 MG TAB PO SCH (08:22)
[2018-04-29] MEDS: FUROSEMIDE 20 MG TAB PO SCH (08:22)
[2018-04-29] MEDS: ENOXAPARIN 40 MG/0.4 ML SYR SC SCH (08:23)
[2018-04-29 08:24] LABS: PLATELET COUNT 206 10^3/uL (150-400)
[2018-04-29] MEDS: traMADol 50 MG TAB PO PRN ×2 (08:30→19:41)
[2018-04-29] MEDS: POLYETHYLENE GLYCOL 3350 17 GM PKT PO SCH (08:35)
--- NOTE | 2018-04-29 12:39 | SOAPPROG ---
SOAP Progress Note Assessment/Plan: Assessment: Debility in an obese woman who had a major back surgery on 04/16/2018. * Initial functional independence measure 73 on 04/24/2018. She needs moderate assistance for bed mobility. Transfers with PT are done with contact guard assist to standby assist. She ambulated 60 ft with a front wheeled walker standby assist. She needed help for managing her oxygen. She negotiated 3 stairs with 2 rails. She showered with minimal assistance for drying her feet. She was seated. Upper body dressing requires setup and lower body dressing requires moderate to maximal assist. * Ambulation improved to 150 ft x 1 and 50 ft x2 on 04/26/2018. 100' X 2 FWW SBA on 04/28/2018. 6 steps 1 rail, axillary crutch to descend on 04/28/2018. * Continue PT and OT to optimize mobility and activities of daily living to the independent to modified independent level. Edema and heart murmur. Most likely the edema is from fluid overload, including fluids that she received in the hospital to maintain blood pressure, and transfusions x2. Also a component of CHF, with elevated BNP on labs 2017. * Reduced lisinopril from 20 mg to 10 mg q.day starting 04/23/2018, and increased hydrochlorothiazide from 12.5 to 25 mg q.day. With blood pressure running low, decrease lisinopril to 5 mg and hydrochlorothiazide to 12.5 mg starting 2017. * Held HCTZ 04/29/2018 and metoprolol 04/28/2018 HS dose to allow increased blood pressure. Initiated furosemide 04/29/2018. * Initiated compression stockings 04/23/2018. * Daily weights continue to slowly decline consistent with gradual diuresis, 4.9 kg since admission as of 04/26/2018. * Renal function stable and BNP increased from 2210 on 04/22/2018 to 1470 on 2017. Hypertension. Blood pressure was running low. Medication changes as above. Atrial fibrillation in the hospital. Likely due to postsurgical stress plus anemia with hemoglobin as low as 6.9. Murmur in physical exam might be consistent with mitral regurgitation; she might have an enlarged left atrium predisposing her to atrial fibrillation. * Restart metoprolol 12.5 mg at HS 04/29/2018. Pain management. Continue morphine SR 15 mg HS, oxycodone p.r.n., and acetaminophen to 1000 mg three times daily scheduled. * Right leg pain overnight 04/25/2018-04/26/2018 may be neuropathic. Increased gabapentin from 200 mg three times daily to 400 mg three times daily. * Discontinued daytime morphine extended release starting 04/28/2018. Continue bedtime dose for now. Abdominal pain. * Abdominal x-ray 04/24/2018 showed constipation. She had mild transaminase elevation on labs. * Obtained chest and abdominal CT yesterday 04/24/2018. She has mild pleural effusions and atelectasis but no pulmonary embolus and no other intrathoracic abnormalities, and moderate stool, minimal pelvic ascites, but no other abnormalities. Normal liver size and no steatosis. * Transaminases improving today 04/25/2018; minimal elevation of AST but transaminases and alkaline phosphatase otherwise within normal limits on labs 07/2018.. Anemia, post surgical, and status post transfusions x2. * Improving on labs 04/24/2018; decline on labs 04/25/2018, with hemoglobin 8.7 and hematocrit 26.3; further decreased to 7.9 and hemoglobin was 8.3 and and 25.3 on 04/29/2018. Hematocrit was 24.9. Continue to monitor. Stool Hemoccult negative x3. Brisk reticulocytosis. LDH not consistent with hemolysis and no abnormal red blood cell morphology seen on peripheral smear 04/29/2018. * Repeat CBC 05/01/2018. Constipation and nausea. * Continue senna 1-2 tabs twice daily and polyethylene glycol daily. Monitor for effectiveness of bowel regimen. * Scopolamine patch discontinued due to dry mouth consultation. Ondansetron is available p.r.n. * With bowels moving, observe for resolution of abdominal discomfort. Dry mouth. Likely caused by opiates and gabapentin. Trial of Biotene starting 04/23/2018. Subjective leg weakness on the right. She is not sure she has informed Dr. Kuhn, the surgeon, of this symptom. * D/W ROSALIE Hadley for Dr. Curtis. If it worsens, would get MRI to rule out abnormal fluid collection etc. Obesity. This will complicate her recovery, especially with the task of being able to climb 16 stairs. She will have a large animal husbandry technician consult. She reports that she has intentionally lost weight through dieting prior to her surgery. Transient atrial fibrillation during her hospitalization with return to normal sinus rhythm after dosing with amiodarone. Continue metoprolol. Monitor for irregular heartbeat. Prophylaxis. She has much reduced mobility and she is at high risk for DVT due to obesity and age. Continue enoxaparin 40 mg subcutaneous daily until her mobility improves. DISPOSITION: Lives with , 16 steps to enter. Local daughter is involved in her care. Tentative discharge date set for 05/01/2018. She will have home PT and O T. FOLLOWUP: She is to see neurosurgeon, Dr. Kuhn, scheduled for 2017 but this can be delayed until after her discharge. Her primary care provider is Dr. Makayla Draper in [place]. She should see Cardiology regarding episode of atrial fibrillation in the hospital and regarding congestive heart failure after her discharge. 04/29/18 12:28 Subjective: Reports vision changes and difficulty reading. Also has noticed tremor possibly since increase in gabapentin from 200 mg to 400 mg 3 times a day. Has right thigh pain. She notices especially after awakening during the night and getting up to the bathroom to urinate. Pain subsequently interferes with ability to return to sleep. No cough or dyspnea, no fevers or chills. Objective: Vital Signs Temp Pulse Resp BP Pulse Ox 36.6 C 66 17 115/57 L 92 04/29/18 06:43 04/29/18 06:43 04/29/18 06:43 04/29/18 08:22 04/29/18 06:43 Laboratory Results 04/29/18 06:15 04/29/18 06:15 04/28/18 04/29/18 04/30/18 05:59 05:59 05:59 Intake Total 1100 1250 Output Total 300 Balance 1100 950 - Time Spent With Patient Time Spent With Patient: Greater than 35 min floor time today, including more than 50% of time in record review and counseling patient and daughter. Physical Exam - Physical Exam General Appearance: WD/WN, alert, no apparent distress, obese Respiratory: normal breath sounds, No crackles, No rhonchi, No wheezing Cardiac/Chest: regular rate, rhythm, edema (2+ bilateral pretibial), JVD, systolic murmur Skin: normal color, warm/dry, other (Incision with Steri-Strips, clean dry and intact. Mild erythema along approximately 2-3 cm of the incision in the most lordotic in of her low back. Subcutaneous thickening and tenderness without erythema at proximal end of incision, approximately 1-2 cm. ) Neuro/Psych: no motor/sensory deficits, alert, normal mood/affect, oriented x 3 ICD10 Worksheet Patient Problems: Problems Problem Status Onset Fusion of spine of thoracolumbar region Acute
[2018-04-29] MEDS: PRAMIPEXOLE 0.25 MG TAB PO SCH ×2 (17:25→21:03)
[2018-04-29] MEDS: morphINE SR 15 MG TAB PO SCH (21:03)
[2018-04-29] MEDS: oxyCODONE IR 5 MG TAB PO PRN (23:53)
[2018-04-30] MEDS: GABAPENTIN 100 MG CAP PO SCH (08:18)
[2018-04-30] MEDS: FAMOTIDINE 20 MG TAB PO SCH ×2 (08:18→20:35)
[2018-04-30] MEDS: LISINOPRIL 10 MG TAB PO SCH (08:18)
[2018-04-30] MEDS: SENNOSIDES/DOCUSATE SODIUM TAB PO SCH ×2 (08:18→20:35)
[2018-04-30] MEDS: ENOXAPARIN 40 MG/0.4 ML SYR SC SCH (08:19)
[2018-04-30] MEDS: MULTIVITAMINS 1 EACH TAB PO SCH (08:19)
[2018-04-30] MEDS: traMADol 50 MG TAB PO PRN ×3 (08:19→23:39)
[2018-04-30] MEDS: FUROSEMIDE 20 MG TAB PO SCH (08:19)
[2018-04-30] MEDS: CHOLECALCIFEROL VIT D3 1,000 UNITS TAB PO SCH (08:19)
[2018-04-30] MEDS: POLYETHYLENE GLYCOL 3350 17 GM PKT PO SCH (10:04)
--- NOTE | 2018-04-30 12:25 | SOAPPROG ---
SOAP Progress Note Assessment/Plan: Assessment: Debility in an obese woman who had a major back surgery on 04/16/2018. * Initial functional independence measure 73 on 04/24/2018. She needs moderate assistance for bed mobility. Transfers with PT are done with contact guard assist to standby assist. She ambulated 60 ft with a front wheeled walker standby assist. She needed help for managing her oxygen. She negotiated 3 stairs with 2 rails. She showered with minimal assistance for drying her feet. She was seated. Upper body dressing requires setup and lower body dressing requires moderate to maximal assist. * Ambulation improved to 150 ft x 1 and 50 ft x2 on 04/26/2018. 100' X 2 FWW SBA on 04/28/2018. 6 steps 1 rail, axillary crutch to descend on 04/28/2018. * Continue PT and OT to optimize mobility and activities of daily living to the independent to modified independent level. Edema and heart murmur. Most likely the edema is from fluid overload, including fluids that she received in the hospital to maintain blood pressure, and transfusions x2. Also a component of CHF, with elevated BNP on labs 2017. * Reduced lisinopril from 20 mg to 10 mg q.day starting 04/23/2018, and increased hydrochlorothiazide from 12.5 to 25 mg q.day. With blood pressure running low, decrease lisinopril to 5 mg and hydrochlorothiazide to 12.5 mg starting 2017. * Held HCTZ 04/29/2018 and metoprolol 04/28/2018 HS dose to allow increased blood pressure. Initiated furosemide 04/29/2018. Restart metoprolol 04/30/2018 at HS. * Initiated compression stockings 04/23/2018. * Daily weights continue to slowly decline consistent with gradual diuresis, 6.2 kg since admission as of 04/26/2018. * Renal function stable and BNP decreased from 2210 on 04/22/2018 to 1470 on 2017. Recheck BMP 05/01/2018. Hypertension. Blood pressure was running low. Medication changes as above. Adequate control Atrial fibrillation in the hospital. Likely due to postsurgical stress plus anemia with hemoglobin as low as 6.9. Murmur in physical exam might be consistent with mitral regurgitation; she might have an enlarged left atrium predisposing her to atrial fibrillation. * Restart metoprolol 12.5 mg at HS 04/30/2018. Pain management. Continue morphine SR 15 mg HS, oxycodone p.r.n., and acetaminophen to 1000 mg three times daily scheduled. * Right leg pain overnight 04/25/2018-04/26/2018 may be neuropathic. Increased gabapentin from 200 mg three times daily to 400 mg three times daily. Increased further to 600 mg three times daily starting 04/30/2018. * Discontinued daytime morphine extended release starting 04/28/2018. Continue bedtime dose for now. Abdominal pain. * Abdominal x-ray 04/24/2018 showed constipation. She had mild transaminase elevation on labs. * Obtained chest and abdominal CT yesterday 04/24/2018. She has mild pleural effusions and atelectasis but no pulmonary embolus and no other intrathoracic abnormalities, and moderate stool, minimal pelvic ascites, but no other abnormalities. Normal liver size and no steatosis. * Transaminases improving today 04/25/2018; minimal elevation of AST but transaminases and alkaline phosphatase otherwise within normal limits on labs 07/2018.. Anemia, post surgical, and status post transfusions x2. * Improving on labs 04/24/2018; decline on labs 04/25/2018, with hemoglobin 8.7 and hematocrit 26.3; further decreased to 7.9 and hemoglobin was 8.3 and and 25.3 on 04/29/2018. Hematocrit was 24.9. Continue to monitor. Stool Hemoccult negative x3. Brisk reticulocytosis. LDH not consistent with hemolysis and no abnormal red blood cell morphology seen on peripheral smear 04/29/2018. * Repeat CBC 05/01/2018. Constipation and nausea. * Continue senna 1-2 tabs twice daily and polyethylene glycol daily. Monitor for effectiveness of bowel regimen. * Scopolamine patch discontinued due to dry mouth consultation. Ondansetron is available p.r.n. * With bowels moving, observe for resolution of abdominal discomfort. Dry mouth. Likely caused by opiates and gabapentin. Trial of Biotene starting 04/23/2018. Subjective leg weakness on the right. She is not sure she has informed Dr. Kuhn, the surgeon, of this symptom. * D/W ROSALIE Hadley for Dr. Curtis. If it worsens, would get MRI to rule out abnormal fluid collection etc. Obesity. This will complicate her recovery, especially with the task of being able to climb 16 stairs. She will have a internal consultant consult. She reports that she has intentionally lost weight through dieting prior to her surgery. Transient atrial fibrillation during her hospitalization with return to normal sinus rhythm after dosing with amiodarone. Continue metoprolol. Monitor for irregular heartbeat. Prophylaxis. She has much reduced mobility and she is at high risk for DVT due to obesity and age. Continue enoxaparin 40 mg subcutaneous daily until her mobility improves. DISPOSITION: Lives with , 16 steps to enter. Local daughter is involved in her care. Tentative discharge date set for 05/01/2018. She will have home PT and O T. FOLLOWUP: She is to see neurosurgeon, Dr. Kuhn, scheduled for 2017 but this will be delayed until after her discharge. Her primary care provider is Dr. Makayla Draper in [place]. She should see Cardiology regarding episode of atrial fibrillation in the hospital and regarding congestive heart failure after her discharge. 04/30/18 12:21 Subjective: Continues to complain of right leg pain, medial thigh and lateral distal thigh and lateral calf. Interferes with sleep. Otherwise without complaints. Ambulating well, no cough or dyspnea, no fevers or chills. Objective: Vital Signs Temp Pulse Resp BP Pulse Ox 36.6 C 58 L 16 135/64 H 84 L 04/30/18 08:00 04/30/18 08:00 04/30/18 08:00 04/30/18 08:18 04/30/18 10:00 Laboratory Results 04/29/18 06:15 04/29/18 06:15 04/29/18 04/30/18 05/01/18 05:59 05:59 05:59 Intake Total 1250 970 Output Total 300 Balance 950 970 Physical Exam - Physical Exam General Appearance: WD/WN, alert, no apparent distress Respiratory: normal breath sounds, No crackles, No rhonchi, No wheezing Cardiac/Chest: regular rate, rhythm, edema (1+ bilateral lower extremity), JVD ( [place] from clavicle to mandible) Skin: normal color, warm/dry Neuro/Psych: no motor/sensory deficits, alert, normal mood/affect, oriented x 3 ICD10 Worksheet Patient Problems: Problems Problem Status Onset Fusion of spine of thoracolumbar region Acute
[2018-04-30] MEDS: PRAMIPEXOLE 0.25 MG TAB PO SCH ×2 (15:22→20:35)
[2018-04-30] MEDS: GABAPENTIN 300 MG CAP PO SCH ×2 (15:22→20:35)
[2018-04-30] MEDS: oxyCODONE IR 5 MG TAB PO PRN ×2 (17:02→21:23)
[2018-04-30] MEDS: morphINE SR 15 MG TAB PO SCH (20:35)
[2018-04-30] MEDS: METOPROLOL SUCCINATE XR 25 MG TAB PO SCH (21:20)
[2018-04-30] MEDS: METHOCARBAMOL 750 MG TAB PO PRN (23:39)
[2018-05-01 08:13] LABS: PLATELET COUNT 262 10^3/uL (150-400)
[2018-05-01] MEDS: SENNOSIDES/DOCUSATE SODIUM TAB PO SCH ×2 (08:19→19:51)
[2018-05-01] MEDS: FAMOTIDINE 20 MG TAB PO SCH ×2 (08:19→19:50)
[2018-05-01] MEDS: GABAPENTIN 300 MG CAP PO SCH ×3 (08:19→22:09)
[2018-05-01] MEDS: FUROSEMIDE 20 MG TAB PO SCH (08:19)
[2018-05-01] MEDS: CHOLECALCIFEROL VIT D3 1,000 UNITS TAB PO SCH (08:19)
[2018-05-01] MEDS: MULTIVITAMINS 1 EACH TAB PO SCH (08:19)
[2018-05-01] MEDS: LISINOPRIL 10 MG TAB PO SCH (08:19)
[2018-05-01] MEDS: ENOXAPARIN 40 MG/0.4 ML SYR SC SCH (08:20)
[2018-05-01] MEDS: POLYETHYLENE GLYCOL 3350 17 GM PKT PO SCH (08:20)
--- NOTE | 2018-05-01 12:16 | SOAPPROG ---
SOAP Progress Note Assessment/Plan: Assessment: Debility in an obese woman who had a major back surgery on 04/16/2018. * Initial functional independence measure 73 on 04/24/2018. Improved to 99 as of 05/01/2018. Ambulating greater than 150 ft more than 3 times a day with front wheeled walker and standby assist or supervision. Has climbed and descended 9 stairs. Grooming and hygiene is done standing at the sink with distance supervision. Upper body dressing is done with standby assist, lower body dressing requires minimal assist. Bathing toileting and transfers are the standby assist level. * Continue PT and OT to optimize mobility and activities of daily living to the independent to modified independent level. Edema and heart murmur. Most likely the edema is from fluid overload, including fluids that she received in the hospital to maintain blood pressure, and transfusions x2. Also a component of CHF, with elevated BNP on labs 2017. * Reduced lisinopril from 20 mg to 10 mg q.day starting 04/23/2018, and increased hydrochlorothiazide from 12.5 to 25 mg q.day. With blood pressure running low, decrease lisinopril to 5 mg and hydrochlorothiazide to 12.5 mg starting 2017. * Held HCTZ 04/29/2018 and metoprolol 04/28/2018 HS dose to allow increased blood pressure. Initiated furosemide 04/29/2018. Restart metoprolol 04/30/2018 at HS. * Initiated compression stockings 04/23/2018. * Daily weights continue to slowly decline consistent with gradual diuresis, 7.8 kg since admission as of 04/26/2018. * Renal function stable and BNP decreased from 2210 on 04/22/2018 to 1470 on 2017. BMP stable 05/01/2018. Hypertension. Blood pressure was running low. Medication changes as above. Adequate control Atrial fibrillation in the hospital. Likely due to postsurgical stress plus anemia with hemoglobin as low as 6.9. Murmur on physical exam might be consistent with mitral regurgitation; she might have an enlarged left atrium predisposing her to atrial fibrillation. * Restart metoprolol 12.5 mg at HS 04/30/2018. Pain management. Continue morphine SR 15 mg HS, oxycodone p.r.n., and acetaminophen to 1000 mg three times daily scheduled. * Neuropathic right leg pain, especially when supine, interferes with sleep.. Increased gabapentin from 200 mg three times daily to 400 mg three times daily. Increased further to 600 mg three times daily starting 04/30/2018. Encouraged use of oxycodone when pain begins to facilitate return to sleep. * Discontinued daytime morphine extended release starting 04/28/2018. Continue bedtime dose for now. Question of hypoventilation, with increased bicarbonate on BMP and morning drowsiness. Might be due to obstructive sleep apnea. She should have further evaluation after discharge. Abdominal pain. Resolved. * Abdominal x-ray 04/24/2018 showed constipation. She had mild transaminase elevation on labs. * Obtained chest and abdominal CT yesterday 04/24/2018. She has mild pleural effusions and atelectasis but no pulmonary embolus and no other intrathoracic abnormalities, and moderate stool, minimal pelvic ascites, but no other abnormalities. Normal liver size and no steatosis. * Transaminases improving today 04/25/2018; minimal elevation of AST but transaminases and alkaline phosphatase otherwise within normal limits on labs 07/2018.. Anemia, post surgical, and status post transfusions x2. * Improving on labs 04/24/2018; decline on labs 04/25/2018, with hemoglobin 8.7 and hematocrit 26.3; further decreased to 7.9 and hemoglobin was 8.3 and and 25.3 on 04/29/2018. Hematocrit was 24.9. Continue to monitor. Stool Hemoccult negative x3. Brisk reticulocytosis. LDH not consistent with hemolysis and no abnormal red blood cell morphology seen on peripheral smear 04/29/2018. * Improved on CBC 05/01/2018. Constipation and nausea. * Continue senna 1-2 tabs twice daily and polyethylene glycol daily. Monitor for effectiveness of bowel regimen. * Scopolamine patch discontinued due to dry mouth consultation. Ondansetron is available p.r.n. * With bowels moving, observe for resolution of abdominal discomfort. Dry mouth. Likely caused by opiates and gabapentin. Trial of Biotene starting 04/23/2018. Subjective leg weakness on the right. She is not sure she has informed Dr. Kuhn, the surgeon, of this symptom. * D/W ROSALIE Hadley for Dr. Curtis. If it worsens, would get MRI to rule out abnormal fluid collection etc. Obesity. This will complicate her recovery, especially with the task of being able to climb 16 stairs. She will have a wrapping clerk consult. She reports that she has intentionally lost weight through dieting prior to her surgery. Transient atrial fibrillation during her hospitalization with return to normal sinus rhythm after dosing with amiodarone. Continue metoprolol. Monitor for irregular heartbeat. Prophylaxis. She has much reduced mobility and she is at high risk for DVT due to obesity and age. Continue enoxaparin 40 mg subcutaneous daily until her mobility improves. DISPOSITION: Lives with , 16 steps to enter. Local daughter is involved in her care. Tentative discharge date set for 05/04/2018. Plan is to discharge to custodial facility due to barrier of 16 steps to enter her home and increased complexity of care needs with need for oxygen. FOLLOWUP: She is to see neurosurgeon, Dr. Kuhn, scheduled for 2017 but this will be delayed until after her discharge. Her primary care provider is Dr. Makayla Draper in [place]. She should see Cardiology regarding episode of atrial fibrillation in the hospital and regarding congestive heart failure after her discharge. 05/01/18 12:08 Subjective: Still has leg pain at night. Last night tried repositioning, tried ice, tried massage, and eventually took oxycodone. Interfered with her sleep. Nurse notes that she is drowsy in the mornings. Otherwise without complaints. No cough or dyspnea, no fevers or chills. Objective: Vital Signs Temp Pulse Resp BP Pulse Ox 36.4 C 55 L 16 111/55 L 97 05/01/18 06:49 05/01/18 06:49 05/01/18 06:49 05/01/18 08:19 05/01/18 06:49 Laboratory Results 05/01/18 06:00 05/01/18 06:00 04/30/18 05/01/18 05/02/18 05:59 05:59 05:59 Intake Total 970 800 Output Total 300 Balance 970 500 - Time Spent With Patient Time Spent With Patient: Greater than 35 min floor time today, including more than 50% of time in coordination of care during staffing meeting, and counseling patient. Physical Exam - Physical Exam General Appearance: WD/WN, alert, no apparent distress Respiratory: No respiratory distress, No accessory muscle use Skin: normal color, warm/dry Extremities: swelling (1+ bilateral pretibial) Neuro/Psych: no motor/sensory deficits, alert, normal mood/affect, oriented x 3 ICD10 Worksheet Patient Problems: Problems Problem Status Onset Fusion of spine of thoracolumbar region Acute
[2018-05-01] MEDS: PRAMIPEXOLE 0.25 MG TAB PO SCH ×2 (16:20→19:50)
[2018-05-01] MEDS: METOPROLOL SUCCINATE XR 25 MG TAB PO SCH (19:50)
[2018-05-01] MEDS: morphINE SR 15 MG TAB PO SCH (19:50)
[2018-05-01] MEDS: traMADol 50 MG TAB PO PRN (19:51)
[2018-05-02] MEDS: oxyCODONE IR 5 MG TAB PO PRN ×5 (00:29→20:25)
[2018-05-02] MEDS: GABAPENTIN 300 MG CAP PO SCH ×3 (08:56→22:29)
[2018-05-02] MEDS: CHOLECALCIFEROL VIT D3 1,000 UNITS TAB PO SCH (08:57)
[2018-05-02] MEDS: MULTIVITAMINS 1 EACH TAB PO SCH (08:57)
[2018-05-02] MEDS: FUROSEMIDE 20 MG TAB PO SCH (08:58)
[2018-05-02] MEDS: SENNOSIDES/DOCUSATE SODIUM TAB PO SCH ×2 (08:58→20:24)
[2018-05-02] MEDS: FAMOTIDINE 20 MG TAB PO SCH ×2 (08:58→20:24)
[2018-05-02] MEDS: POLYETHYLENE GLYCOL 3350 17 GM PKT PO SCH ×2 (08:59→09:05)
[2018-05-02] MEDS: LISINOPRIL 10 MG TAB PO SCH (08:59)
--- NOTE | 2018-05-02 15:09 | SOAPPROG ---
SOAP Progress Note Assessment/Plan: Assessment/Plan: Debility in an obese woman who had a major back surgery on 04/16/2018. * Initial functional independence measure 73 on 04/24/2018. Improved to 99 as of 05/01/2018. Ambulating greater than 150 ft more than 3 times a day with front wheeled walker and standby assist or supervision. Has climbed and descended 9 stairs. Grooming and hygiene is done standing at the sink with distance supervision. Upper body dressing is done with standby assist, lower body dressing requires minimal assist. Bathing toileting and transfers are the standby assist level. * Continue PT and OT to optimize mobility and activities of daily living to the independent to modified independent level. Edema and heart murmur. Most likely the edema is from fluid overload, including fluids that she received in the hospital to maintain blood pressure, and transfusions x2. Also a component of CHF, with elevated BNP on labs 2017. * Reduced lisinopril from 20 mg to 10 mg q.day starting 04/23/2018, and increased hydrochlorothiazide from 12.5 to 25 mg q.day. With blood pressure running low, decrease lisinopril to 5 mg and hydrochlorothiazide to 12.5 mg starting 2017. * Held HCTZ 04/29/2018 and metoprolol 04/28/2018 HS dose to allow increased blood pressure. Initiated furosemide 04/29/2018. Restart metoprolol 04/30/2018 at HS. * Initiated compression stockings 04/23/2018. * Daily weights continue to slowly decline consistent with gradual diuresis, 7.8 kg since admission as of 04/26/2018. * Renal function stable and BNP decreased from 2210 on 04/22/2018 to 1470 on 2017. BMP stable 05/01/2018. * ongoing improvement - Recheck BMP tomorrow but likely will be able to move back over to furosemide Hypertension. Blood pressure was running low. Medication changes as above. Adequate control Atrial fibrillation in the hospital. Likely due to postsurgical stress plus anemia with hemoglobin as low as 6.9. Murmur on physical exam might be consistent with mitral regurgitation; she might have an enlarged left atrium predisposing her to atrial fibrillation. * Restart metoprolol 12.5 mg at HS 04/30/2018. Pain management. Continue morphine SR 15 mg HS, oxycodone p.r.n., and acetaminophen to 1000 mg three times daily scheduled. * Neuropathic right leg pain, especially when supine, interferes with sleep.. Increased gabapentin from 200 mg three times daily to 400 mg three times daily. Increased further to 600 mg three times daily starting 04/30/2018. Encouraged use of oxycodone when pain begins to facilitate return to sleep. * Discontinued daytime morphine extended release starting 04/28/2018. Continue bedtime dose for now. Question of hypoventilation, with increased bicarbonate on BMP and morning drowsiness. Might be due to obstructive sleep apnea. She should have further evaluation after discharge. Abdominal pain. Resolved. * Abdominal x-ray 04/24/2018 showed constipation. She had mild transaminase elevation on labs. * Obtained chest and abdominal CT yesterday 04/24/2018. She has mild pleural effusions and atelectasis but no pulmonary embolus and no other intrathoracic abnormalities, and moderate stool, minimal pelvic ascites, but no other abnormalities. Normal liver size and no steatosis. * Transaminases improving today 04/25/2018; minimal elevation of AST but transaminases and alkaline phosphatase otherwise within normal limits on labs 07/2018.. Anemia, post surgical, and status post transfusions x2. * Improving on labs 04/24/2018; decline on labs 04/25/2018, with hemoglobin 8.7 and hematocrit 26.3; further decreased to 7.9 and hemoglobin was 8.3 and and 25.3 on 04/29/2018. Stool Hemoccult negative x3. Brisk reticulocytosis. LDH not consistent with hemolysis and no abnormal red blood cell morphology seen on peripheral smear 04/29/2018. Improved on CBC 05/01/2018. Constipation and nausea. * Continue senna 1-2 tabs twice daily and polyethylene glycol daily. Monitor for effectiveness of bowel regimen. * Scopolamine patch discontinued due to dry mouth consultation. Ondansetron is available p.r.n. * With bowels moving, observe for resolution of abdominal discomfort. Dry mouth. Likely caused by opiates and gabapentin. Trial of Biotene starting 04/23/2018. Subjective leg weakness on the right. She is not sure she has informed Dr. Kuhn, the surgeon, of this symptom. * D/W ROSALIE Hadley for Dr. Curtis. If it worsens, would get MRI to rule out abnormal fluid collection etc. Obesity. This will complicate her recovery, especially with the task of being able to climb 16 stairs. She will have a box feeder consult. She reports that she has intentionally lost weight through dieting prior to her surgery. Transient atrial fibrillation during her hospitalization with return to normal sinus rhythm after dosing with amiodarone. Continue metoprolol. Monitor for irregular heartbeat. Prophylaxis. She has much reduced mobility and she is at high risk for DVT due to obesity and age. Continue enoxaparin 40 mg subcutaneous daily until her mobility improves. DISPOSITION: Lives with , 16 steps to enter. Local daughter is involved in her care. Tentative discharge date set for 05/04/2018. [facility] due to barrier of 16 steps to enter her home and increased complexity of care needs with need for oxygen. FOLLOWUP: She is to see neurosurgeon, Dr. Kuhn, scheduled for 2017 but this will be delayed until after her discharge. Her primary care provider is Dr. Makayla Draper in [place]. She should see Cardiology regarding episode of atrial fibrillation in the hospital and regarding congestive heart failure after her discharge. 05/02/18 15:07 Subjective: Doing pretty well today - feels that her swelling is nearly back to normal. no new neurologic changes. having bowel movement and controlled urine Objective: Vital Signs Temp Pulse Resp BP Pulse Ox 98.0 F 60 16 127/57 H 98 05/02/18 07:45 05/02/18 07:45 05/02/18 07:45 05/02/18 08:59 05/02/18 07:45 Laboratory Results 05/01/18 06:00 05/01/18 06:00 05/01/18 05/02/18 05/03/18 05:59 05:59 05:59 Intake Total 800 840 Output Total 300 Balance 500 840 Physical Exam - Physical Exam General Appearance: alert, no apparent distress Respiratory: lungs clear, normal breath sounds Cardiac/Chest: regular rate, rhythm Abdomen: non-tender, soft Skin: normal color Extremities: other (trace to 1+ edema of the BLE. ) Neuro/Psych: alert, normal mood/affect ICD10 Worksheet Patient Problems: Problems Problem Status Onset Fusion of spine of thoracolumbar region Acute
[2018-05-02] MEDS: traMADol 50 MG TAB PO PRN ×2 (16:46→22:29)
[2018-05-02] MEDS: PRAMIPEXOLE 0.25 MG TAB PO SCH ×2 (16:46→20:24)
[2018-05-02] MEDS: morphINE SR 15 MG TAB PO SCH (20:25)
[2018-05-02] MEDS: METOPROLOL SUCCINATE XR 25 MG TAB PO SCH (20:26)
[2018-05-03] MEDS: SENNOSIDES/DOCUSATE SODIUM TAB PO SCH ×2 (07:30→21:47)
[2018-05-03] MEDS: GABAPENTIN 300 MG CAP PO SCH ×3 (07:30→21:47)
[2018-05-03] MEDS: traMADol 50 MG TAB PO PRN (07:31)
[2018-05-03] MEDS: FAMOTIDINE 20 MG TAB PO SCH ×2 (07:31→21:47)
[2018-05-03] MEDS: FUROSEMIDE 20 MG TAB PO SCH (07:31)
[2018-05-03] MEDS: MULTIVITAMINS 1 EACH TAB PO SCH (07:32)
[2018-05-03] MEDS: ONDANSETRON DISINTEGRATING 4 MG TAB PO PRN (07:42)
[2018-05-03] MEDS: LISINOPRIL 10 MG TAB PO SCH (07:43)
[2018-05-03] MEDS: CHOLECALCIFEROL VIT D3 1,000 UNITS TAB PO SCH (09:00)
[2018-05-03] MEDS: POLYETHYLENE GLYCOL 3350 17 GM PKT PO SCH (09:28)
--- NOTE | 2018-05-03 11:14 | SOAPPROG ---
SOAP Progress Note Assessment/Plan: Assessment/Plan: Debility in an obese woman who had a major back surgery on 04/16/2018. * Initial functional independence measure 73 on 04/24/2018. Improved to 99 as of 05/01/2018. Ambulating greater than 150 ft more than 3 times a day with front wheeled walker and standby assist or supervision. Has climbed and descended 9 stairs. Grooming and hygiene is done standing at the sink with distance supervision. Upper body dressing is done with standby assist, lower body dressing requires minimal assist. Bathing toileting and transfers are the standby assist level. * Continue PT and OT to optimize mobility and activities of daily living to the independent to modified independent level. Edema and heart murmur. Most likely the edema is from fluid overload, including fluids that she received in the hospital to maintain blood pressure, and transfusions x2. Also a component of CHF, with elevated BNP on labs 2017. * Reduced lisinopril from 20 mg to 10 mg q.day starting 04/23/2018, and increased hydrochlorothiazide from 12.5 to 25 mg q.day. With blood pressure running low, decrease lisinopril to 5 mg and hydrochlorothiazide to 12.5 mg starting 2017. * Held HCTZ 04/29/2018 and metoprolol 04/28/2018 HS dose to allow increased blood pressure. Initiated furosemide 04/29/2018. Restart metoprolol 04/30/2018 at HS. * Initiated compression stockings 04/23/2018. * Daily weights continue to slowly decline consistent with gradual diuresis, 7.8 kg since admission as of 04/26/2018. * Renal function stable and BNP decreased from 2210 on 04/22/2018 to 1470 on 2017. BMP stable 05/01/2018. * ongoing improvement - Recheck BMP tomorrow but likely will be able to move back over to furosemide Hypertension. Blood pressure was running low. Medication changes as above. Adequate control Atrial fibrillation in the hospital. Likely due to postsurgical stress plus anemia with hemoglobin as low as 6.9. Murmur on physical exam might be consistent with mitral regurgitation; she might have an enlarged left atrium predisposing her to atrial fibrillation. * Restart metoprolol 12.5 mg at HS 04/30/2018. Pain management. Continue morphine SR 15 mg HS, oxycodone p.r.n., and acetaminophen to 1000 mg three times daily scheduled. * Neuropathic right leg pain, especially when supine, interferes with sleep.. Increased gabapentin from 200 mg three times daily to 400 mg three times daily. Increased further to 600 mg three times daily starting 04/30/2018. Encouraged use of oxycodone when pain begins to facilitate return to sleep. * Discontinued daytime morphine extended release starting 04/28/2018. Continue bedtime dose for now. Question of hypoventilation, with increased bicarbonate on BMP and morning drowsiness. Might be due to obstructive sleep apnea. She should have further evaluation after discharge. Abdominal pain. Resolved. * Abdominal x-ray 04/24/2018 showed constipation. She had mild transaminase elevation on labs. * Obtained chest and abdominal CT yesterday 04/24/2018. She has mild pleural effusions and atelectasis but no pulmonary embolus and no other intrathoracic abnormalities, and moderate stool, minimal pelvic ascites, but no other abnormalities. Normal liver size and no steatosis. * Transaminases improving today 04/25/2018; minimal elevation of AST but transaminases and alkaline phosphatase otherwise within normal limits on labs 07/2018.. Anemia, post surgical, and status post transfusions x2. * Improving on labs 04/24/2018; decline on labs 04/25/2018, with hemoglobin 8.7 and hematocrit 26.3; further decreased to 7.9 and hemoglobin was 8.3 and and 25.3 on 04/29/2018. Stool Hemoccult negative x3. Brisk reticulocytosis. LDH not consistent with hemolysis and no abnormal red blood cell morphology seen on peripheral smear 04/29/2018. Improved on CBC 05/01/2018. Constipation and nausea. * Continue senna 1-2 tabs twice daily and polyethylene glycol daily. Monitor for effectiveness of bowel regimen. * Scopolamine patch discontinued due to dry mouth consultation. Ondansetron is available p.r.n. * With bowels moving, observe for resolution of abdominal discomfort. Dry mouth. Likely caused by opiates and gabapentin. Trial of Biotene starting 04/23/2018. Subjective leg weakness on the right. She is not sure she has informed Dr. Kuhn, the surgeon, of this symptom. * D/W ROSALIE Hadley for Dr. Curtis. If it worsens, would get MRI to rule out abnormal fluid collection etc. Obesity. This will complicate her recovery, especially with the task of being able to climb 16 stairs. She will have a purification operator consult. She reports that she has intentionally lost weight through dieting prior to her surgery. Transient atrial fibrillation during her hospitalization with return to normal sinus rhythm after dosing with amiodarone. Continue metoprolol. Monitor for irregular heartbeat. Prophylaxis. 2/2 increased mobility, DVT Ppx d/c'd on 05/01. DISPOSITION: Lives with , 16 steps to enter. Local daughter is involved in her care. Tentative discharge date set for 05/04/2018. Plan is to discharge to group home facility due to barrier of 16 steps to enter her home and increased complexity of care needs with need for oxygen. FOLLOWUP: She is to see neurosurgeon, Dr. Kuhn, scheduled for 2017 but this will be delayed until after her discharge. Her primary care provider is Dr. Makayla Draper in [place]. She should see Cardiology regarding episode of atrial fibrillation in the hospital and regarding congestive heart failure after her discharge. Called to the room today once I arrived to evaluate pt first- pt had been feeling lightheaded and also had a decrease in O2 during therapy. Increased O1 by 1 L and quickly returned to normal. Pt reported that while laying down this morning (not associated with her PT time) she felt a little pain in her anterior chest/skin hypersensitivity but resolved with rubbing on her chest ( lasted a short time). She did have an EKG on 05/01 that was normal - pt with normal pulse on exam and no further pain. Will get Trop/CK, BMP, CBC Stat. Lungs are clear, rate/rythm normal. Pt without ongoing chest pain. Will have her increase her fluid intake (she'd like to trial PO intake first) and d/c her lasix since her BP was low this morning- worse with standing. Potentially overdid fluid removal. Monitor O2 closely but otherwise no exam findings concerning. She was taken off of the lovenox on 05/01 given increased mobility. 05/03/18 11:06 Subjective: Pt found in sitting position in her chair. She says that her pain was pretty bad last night -hard to be comfortable and didn't sleep well. Feeling a little tired but good while seated in the chair. No associated SOB/CP. Did have a good BM yesterday and no stomach/abdominal pain. Did note that was lightheaded when she went to standing in therapy today - mouth feels dry this morning. Objective: Vital Signs Temp Pulse Resp BP Pulse Ox 98.1 F 66 16 89/45 L 95 05/03/18 07:15 05/03/18 09:55 05/03/18 07:15 05/03/18 09:55 05/03/18 09:55 Laboratory Results 05/01/18 06:00 05/01/18 06:00 05/02/18 05/03/18 05/04/18 05:59 05:59 05:59 Intake Total 840 1250 340 Balance 840 1250 340 Physical Exam - Physical Exam General Appearance: alert, no apparent distress, other ( not ill appearing) Respiratory: lungs clear, normal breath sounds Cardiac/Chest: regular rate, rhythm Abdomen: non-tender, soft Skin: normal color Extremities: other (Improved swelling today - Just some residual in the ankle area. ) Neuro/Psych: alert, normal mood/affect ICD10 Worksheet Patient Problems: Problems Problem Status Onset Fusion of spine of thoracolumbar region Acute
[2018-05-03 11:57] LABS: CREATINE KINASE 32 IU/L (0-156)
[2018-05-03] MEDS: PRAMIPEXOLE 0.25 MG TAB PO SCH ×2 (15:27→21:47)
[2018-05-03] MEDS: oxyCODONE IR 5 MG TAB PO PRN ×2 (15:37→23:12)
[2018-05-03] MEDS: METOPROLOL SUCCINATE XR 25 MG TAB PO SCH (21:46)
[2018-05-03] MEDS: morphINE SR 15 MG TAB PO SCH (21:47)
--- NOTE | 2018-05-04 08:11 | CPEKG ---
Test Reason : OPEN Blood Pressure : / mmHG Vent. Rate : 059 BPM Atrial Rate : 060 BPM P-R Int : 176 ms QRS Dur : 080 ms QT Int : 404 ms P-R-T Axes : 059 041 021 degrees QTc Int : 401 ms SINUS RHYTHM Confirmed by Tobias Leroy ([id number]) on 05/04/2018 8:11:35 AM Referred By: Confirmed By:Tobias Leroy
[2018-05-04] MEDS: MULTIVITAMINS 1 EACH TAB PO SCH (08:34)
[2018-05-04] MEDS: CHOLECALCIFEROL VIT D3 1,000 UNITS TAB PO SCH (08:34)
[2018-05-04] MEDS: GABAPENTIN 300 MG CAP PO SCH (08:34)
[2018-05-04] MEDS: FAMOTIDINE 20 MG TAB PO SCH (08:35)
[2018-05-04] MEDS: POLYETHYLENE GLYCOL 3350 17 GM PKT PO SCH (08:35)
[2018-05-04] MEDS: SENNOSIDES/DOCUSATE SODIUM TAB PO SCH (08:35)
[2018-05-04] MEDS: LISINOPRIL 10 MG TAB PO SCH (09:51)
[2018-05-04 09:52] VITALS: BP 105/47
[2018-05-04] MEDS: traMADol 50 MG TAB PO PRN (12:44)
--- NOTE | 2018-05-04 18:13 | GDS ---
ADMITTING DIAGNOSES: Degenerative scoliosis, status post lumbar fusion from T9 to pelvis. DISCHARGE DIAGNOSES: Degenerative scoliosis, status post lumbar fusion from T9 to pelvis. OTHER DISCHARGE DIAGNOSES: 1. Congestive heart failure. 2. Heart murmur. 3. Hypertension. 4. Atrial fibrillation in the hospital. 5. Anemia. 6. Right leg pain. COMPLICATIONS: There were none. PROCEDURES: There were none. CONSULTATIONS: There were none. HISTORY/HOSPITAL COURSE: This patient was admitted from [facility] where she had had major spinal fusion surgery and correction of a degenerative scoliosis. During her hospitalization she had considerable surgical blood loss and required transfusions x2 as well as fluid resuscitation. She had pain management issues and gabapentin was titrated. She had transient postoperative atrial fibrillation treated with amiodarone and then with metoprolol with amiodarone being discontinued. She was medically stabilized and appropriate for inpatient rehabilitation. She did well in rehabilitation. Her initial functional independence measure was 73 on 04/24/2018, which is consistent with long-term level of care. She needed assistance with all mobility-related activities of daily living and she had considerable pain. Functional independence measure improved to 99 as of 05/01/2018, which is consistent with independent living. She was able to walk greater than 150 feet with a front-wheeled walker and standby assist or supervision. She was able to climb and descend 9 stairs. She could accomplish grooming and hygiene standing at the sink with distance supervision. Upper body dressing required standby assist and lower body dressing required minimal assist. Bathing, toileting, and related transfers were done with standby assist. She had considerable edema. Brain natriuretic peptide on the day of hospital discharge was 2250, indicating congestive heart failure. She also had a heart murmur which was possibly consistent with mitral regurgitation. She also likely had fluid overload in the hospital due to need for fluid resuscitation as well as blood transfusions. She was initially diuresed by reducing lisinopril and increasing hydrochlorothiazide. Lisinopril ultimately needed to be decreased to 5 mg daily. She diuresed well and maintained blood pressure until 04/29/2018, at which point, blood pressure was becoming low. Metoprolol was held. Hydrochlorothiazide was stopped, and she was initiated on furosemide at 20 mg daily. She diuresed very well, ultimately nearly 10 kg. On the day before discharge, she had a low systolic blood pressure at 84 and furosemide was discontinued. Renal function was stable with no elevated creatinine or decreased GFR. She was advised to check her blood pressure each morning. If blood pressure is less than 120/80, she is to forego lisinopril and hydrochlorothiazide, and she was informed that her blood pressure goal should be less than 140/90. She is to follow up with Cardiology for an echocardiogram and evaluation of congestive heart failure and optimization of medications. Atrial fibrillation. In the hospital, metoprolol was discontinued for several days due to low blood pressure, but was subsequently restarted at h.s. She had no recurrent arrhythmias noted. She did have an episode of dizziness and chest discomfort during her rehabilitation stay, but no dysrhythmia was noted. EKG was normal. Troponins were not elevated. Regarding anemia, it overall improved on labs. Her jhon hemoglobin and hematocrit on 04/29/2018, was 7.9 and 25.3, and the day before discharge, it had improved to 8.9 and 28. Regarding pain management, she was on morphine SR 15 mg twice a day as well as p.r.n. oxycodone and scheduled acetaminophen at 1000 mg 3 times a day. She had prominent neuropathic symptoms, especially in the right leg. Gabapentin was titrated from 200 mg 3 times a day to 400 mg 3 times a day and then to 600 mg 3 times a day as of 04/30/2018. She had improvement in her leg pain. Daytime morphine extended release was discontinued starting 04/28/2018. As of the day of discharge, she had been using oxycodone 10-25 mg a day in 5-10 mg increments. She was also using tramadol 50 mg once or twice a day. She had abdominal pain, constipation, and nausea. An abdominal CT was done as well as a chest CT to evaluate for pulmonary embolus as a potential etiology of hypoxemia and to rule out any intraabdominal pathology. She was found to have pleural effusions and minimal ascites as well as constipation. Laxatives were titrated and eventually her abdominal pain resolved. CONDITION UPON DISCHARGE: Good. ACTIVITY: Ad daxa, but she is using a front-wheeled walker for mobility. She is not to be driving as long as she is using opioids and until cleared for driving by Neurosurgery. DIET: Regular. MEDICATIONS ON DISCHARGE: 1. Acetaminophen 325 mg p.o. daily. 2. Refresh eyedrops p.r.n. 3. Cholecalciferol 1000 units p.o. daily. 4. Famotidine 20 mg p.o. b.i.d. 5. Gabapentin 600 mg p.o. t.i.d. 6. Hydrochlorothiazide 12.5 mg p.o. daily as long as blood pressure is greater than 120/80. 7. Lisinopril 5 mg p.o. daily as long as blood pressure is greater than 120/80. 8. Methocarbamol 750 mg p.o. q.i.d. p.r.n. 9. Metoprolol XR 12.5 mg p.o. q.h.s. 10. Morphine SR 15 mg p.o. q.h.s. 11. Multivitamin daily. 12. Oxycodone 5-10 mg p.o. q.4 hours p.r.n. 13. Polyethylene glycol 17 g p.o. t.i.d. 14. Pramipexole 0.25 mg b.i.d. at 1600 and 2100 for history of restless legs syndrome. 15. Biotene mouth rinse p.r.n. dry mouth. 16. Senna/docusate 1-2 tablets p.o. b.i.d. 17. Tramadol 50 mg p.o. q.6 hours p.r.n. ISSUES TO BE ADDRESSED AT FOLLOWUP: 1. Debility. She will continue OT and PT after discharge and can follow up with her primary care provider regarding her progress. 2. Pain management. She has been discharged with approximately a 1-week supply of opiate pain medications. She can follow up with primary care or surgeon, Dr. Kuhn, if she needs continued opiates. 3. CHF, edema, and heart murmur. She needs to see a client services coordinator for echocardiogram and to optimize management. 4. Postsurgical anemia. She has been doing well and can follow up with her primary care provider. 5. She had subjective complaints of visual disturbances intermittently. It was unclear if this might be an adverse effect of gabapentin. She has been referred to truck headlight assembler, Dr. Willard Biswas. Greater than 30 minutes was spent on this discharge including medication reconciliation, coordination of care, and counseling patient and family. Copy requested to: ADITYA LAUGHLIN /[id number]/MODL MTDD
== END 2018-05-04 14:26 | DRG 560 ==
LOC: BREH 13:49
PROVIDERS: ADMIT Internal Medicine; ATTEND Internal Medicine
PROC: F07M3ZZ Motor Function Treatment of Musculoskeletal System - Whole Body (ICD-10-PCS; principal; 2018-04-22)
PROC: F08Z7ZZ Vocational Activities and Functional Community or Work Reintegration Skills Treatment (ICD-10-PCS; principal; 2018-04-22)
DX: Z47.89 Encounter for other orthopedic aftercare (principal); Z98.1 Arthrodesis status; M41.9 Scoliosis, unspecified; M48.00 Spinal stenosis, site unspecified; I11.0 Hypertensive heart disease with heart failure; E66.09 Other obesity due to excess calories; Z68.38 Body mass index [BMI] 38.0-38.9, adult; I48.91 Unspecified atrial fibrillation; G25.81 Restless legs syndrome; D62 Acute posthemorrhagic anemia; E78.5 Hyperlipidemia, unspecified; K59.00 Constipation, unspecified; I50.9 Heart failure, unspecified; R01.1 Cardiac murmur, unspecified; J90 Pleural effusion, not elsewhere classified; R18.8 Other ascites
CPT/HCPCS: 83010-90; 97110-GO; 97110-GP; 97112-GP; 97116-GP; 97162-GP; 97166-GO; 97530-GO; 97530-GP; 97535-GO; G0515-GO; J1650; Q9967

== ENCOUNTER → 2018-05-21 | Outpatient (CLI) | payer OTHER, MEDICARE | LOC: FIMAGING 15:14 | PROVIDERS: ATTEND Internal Medicine Infectious Disease | DX: M79.604 Pain in right leg (principal); R60.9 Edema, unspecified ==

== ENCOUNTER 2018-06-11 11:56 | Inpatient (IN) | payer OTHER, MEDICARE ==
[2018-06-12] MEDS ORDERED: NALOXONE HCL 0.4 MG/ML INJ IVP PRN (14:44)
[2018-06-12] MEDS ORDERED: BISACODYL 10 MG SUPP PR PRN (14:44)
[2018-06-12] MEDS ORDERED: MAGNESIUM HYDROXIDE 30 ML UDCUP PO PRN (14:44)
[2018-06-12] MEDS ORDERED: SIMETHICONE 80 MG TAB CHEW PO PRN (14:44)
[2018-06-12] MEDS ORDERED: ALTEPLASE 2 MG VIAL IVP PRN (14:49)
[2018-06-12] MEDS ORDERED: BIOTENE DRY MOUTH ORAL RINSE 237 ML BTL MM PRN (14:49)
--- NOTE | 2018-06-12 15:35 | GHP ---
POST ADMISSION PHYSICIAN EVALUATION AND REHABILITATION TREATMENT PLAN DATE OF ADMISSION: 06/12/2018 DATE OF EVALUATION: 06/12/2018. TIME OF EVALUATION: 1405. REFERRING FACILITY: [facility]. Referring physician is Dr. Kuhn. REFERRING PHYSICIAN: Dr. Kuhn IMPAIRMENT GROUP: [id number]. DATE OF ONSET: 06/05/2018. REHABILITATION DIAGNOSIS: Debility status post T6 to S1 lumbar fusion surgery. ETIOLOGIC DIAGNOSIS: Other nontraumatic spinal cord dysfunction. DATE OF SURGERY: 06/05/2018. HISTORY OF PRESENT ILLNESS: This patient had a T9 to S1 fusion done on 2017, and had a subsequent rehabilitation stay at [facility] inpatient rehabilitation, where she did well and ultimately was able to ascend and descend the 16 steps that she needs to negotiate to get in and out of her home. She had a return of symptoms, including right leg weakness and pain. She was taken back to surgery on 06/05/2018, electively for revision. A T6 to S1 fusion was done, including removal of a right L5 screw which was contributing to right leg symptoms. She had a postoperative infection with coagulase-negative staphylococcus, for which she is being treated with vancomycin. She had anemia and required a blood transfusion. She had acute hypoxic respiratory failure. She had an acute toxic encephalopathy. She had chest wall pain. A chest CT was done, which ruled out pulmonary embolus or other thoracic abnormalities. There was an echocardiogram done, which showed diastolic dysfunction. She was medically stabilized and ready for inpatient rehabilitation. STUDIES AND LABS IN THE HOSPITAL: Other than as discussed in History of Present Illness, the most recent laboratories I have: CBC on 06/10/2018, showed a normal white blood cell count at 7.9. Hemoglobin was 8.9, and hematocrit was 28.4. Platelet count was normal at 175. Basic metabolic profile on 06/10/2018, showed a slightly high carbon dioxide at 35, a slightly high glucose at 108, and otherwise was unremarkable. Vancomycin trough on 06/10, at 6:23 a.m. was at 16.6. PRECAUTIONS: She is a fall risk. She has orthopedic spinal precautions for the lumbar spine. ACTIVE COMORBIDITIES: She has the tier 3 comorbidity of septicemia and morbid obesity. PAST MEDICAL HISTORY: 1. Obesity. 2. Hypertension. 3. Restless leg syndrome with lower and upper extremity symptoms. 4. Dyslipidemia. 5. Severe degenerative scoliosis. PAST SURGICAL HISTORY: 1. Cholecystectomy. 2. Tonsil and adenoidectomy. 3. Prior T9 to S1 fusion. PRE-HOSPITAL MEDICATIONS: I do not have a list, but they included hydrochlorothiazide, lisinopril, metoprolol, multivitamin, and pramipexole. ADMISSION MEDICATIONS: 1. Acetaminophen 650 mg p.o. q.4 hours p.r.n. 2. Calcium carbonate 500 mg p.o. q.2 hours p.r.n. 3. Diazepam 5 mg p.o. t.i.d. p.r.n. muscle spasm. 4. Enoxaparin 40 mg subcutaneous q. day. 5. Milk of Magnesia 30 cc p.o. q. day p.r.n. 6. Naloxone 0.05 mL p.r.n. opiate-induced respiratory depression. 7. Oxycodone/acetaminophen 10/325, one p.o. q.4 hours p.r.n. 8. Polyethylene glycol 17 g p.o. 3 times a day. 9. Senna 1 tab p.o. b.i.d. 10. Simethicone 1 p.o. q.6 hours p.r.n. 11. Vancomycin 1200 mg IV q.12 hours. 12. Gabapentin 600 mg morning and afternoon and 900 mg at bedtime. 13. Escitalopram 10 mg p.o. q. day. 14. Famotidine 20 mg p.o. b.i.d. 15. Hydrochlorothiazide 12.5 mg p.o. q. day. 16. Metoprolol succinate 25 mg p.o. q. day. 17. Ondansetron 4 mg p.o. q. day p.r.n. 18. Pramipexole 0.25 mg p.o. b.i.d. ALLERGIES: There is an allergy listed to levofloxacin. PSYCHOSOCIAL HISTORY: She is . She lives with her . There are 16 steps to enter their home. She is a retired medical assistant cardiology. She is a nonsmoker and does not use alcohol. FAMILY HISTORY: Noncontributory. REVIEW OF SYSTEMS: She had nausea during her trip from [place] to [place]. She thinks this was due to taking medications on an empty stomach. She has pain most prominently over her sternum, but also has some postsurgical back pain intermittently. She has been sleeping well. She denies cough or dyspnea, but has been using oxygen. She denies vomiting, constipation, or diarrhea. She denies dysuria or urinary frequency. She denies fevers or chills. She denies joint pain or joint swelling. She complains of dry mouth. Otherwise, a 10-point review of systems is negative. PHYSICAL EXAM: VITAL SIGNS: Blood pressure is 145/63, heart rate is 61, respiratory rate is 16, temperature is 98.7 degrees Fahrenheit, oxygen saturation is 74% on room air and 95% on 2 L of oxygen. GENERAL: This is an obese woman, lying in bed, dressed in street clothes. Alert, cooperative, and in no acute distress. HEENT: Extraocular movements are intact. Pupils are equal, round, and reactive to light. Mucous membranes are somewhat dry. Dentition is in good condition. She has a crowded airway, Mallampati class 4. NECK: Supple. HEART: There is a regular rate and rhythm. There is a 2/6 systolic murmur heard best at the left sternal border. There is trace edema. There is JVD approximately [facility] between clavicle and angle of the jaw. LUNGS : Clear to auscultation bilaterally. ABDOMEN: Soft, nontender, nondistended with normoactive bowel sounds. EXTREMITIES: There is no cyanosis or clubbing. There is trace edema bilaterally to the lower extremities. Radial and dorsalis pedis pulses are 2+ bilaterally. NEUROLOGIC: She is alert and oriented x3. Cranial nerves 2 through 12 are grossly intact. She has 4/5 strength at the right hip flexor and hamstrings and 4+ over 5 at the right quadriceps. Right foot plantar flexion and dorsiflexion are 5/5. Otherwise, her strength is 5/5 overall. Sensation is intact to light touch. Deep tendon reflexes are 2+ bilaterally at the patellar and Achilles tendons. She is able to rise to seated from supine with moderate assist of 1 person. She is able to rise from seated to standing with assist of 2 people to a front-wheeled walker. She ambulates to the bathroom with standby assist, short steps, reduced leg swing on the right. CURRENT LEVEL OF FUNCTION PER PREADMISSION SCREEN: She was eating a regular consistency diet with thin liquids. For dressing, she required maximal assistance, including cues for spinal precautions, and she needed minimal assistance to don an LSO brace at the edge of the bed. Toileting required maximal assistance. Bed mobility required minimal assist with an elevated head of the bed. Transfers were done with minimal assist of 2 as a stand-pivot transfer to a front-wheeled walker. She was able to ambulate 30 to 50 feet with a front-wheeled walker and minimal assist of 2. She had delayed swing of the right lower extremity. She was unable to climb stairs. Communication and cognition were normal. On today's exam, there are no significant changes from the preadmission screen. IMPRESSION: This is a 72-year-old woman with a prior extensive T6 to S1 lumbar fusion done for severe degenerative scoliosis. She had a rehabilitation stay after that surgery in April of this year and subsequently was able to go home with her , including being able to ascend and descend 16 stairs in and out of their home. She had worsening of symptoms with right leg pain and weakness and had a repeat surgery with a T9 to S1 fusion and removal of an L5 screw. She now has resolution of pain symptoms, but continues to have right leg weakness, gait impairment, and inability to ascend and descend stairs. Hospital course was complicated by postoperative infection, anemia, acute hypoxic respiratory failure, and acute toxic encephalopathy. She has sternal pain, likely due to positioning during surgery. She has grade 1 diastolic dysfunction, and there is mention of pulmonary hypertension, though I do not have the echocardiogram report. She received a blood transfusion. Pulmonary embolus or other intrathoracic pathology was ruled out. She was medically stable and ready for inpatient rehabilitation. Her goal is to complete a rehabilitation stay and return home with her . For a safe discharge, she will need to progress to modified independence for basic mobility and self-care, and she will need to be able to ascend and descend 16 stairs. She will need to be infection free or stably treated, ideally without intravenous antibiotics. She will have therapy with Physical Therapy and Occupational Therapy for 90 minutes per day for each discipline on 5 to 7 days of the week. Her expected duration of stay is 12 days. It is anticipated that upon discharge, she will continue to benefit from home health services, including Nursing, Occupational Therapy, and Physical Therapy. PLAN: 1. Debility status post T9 to S1 spinal fusion as a revision of a prior T6 to S1 spinal fusion on 06/05/2018. PT and OT to optimize mobility and activities of daily living toward the modified independent level. 2. Bacteremia status post surgery. She is on vancomycin, which will be continued. Infectious Disease has been consulted to assist in management. Will check a comprehensive metabolic profile, CBC, and vancomycin trough in the morning. 3. Pain management. Hospital discharge medications seem to include only an oxycodone-acetaminophen combination pill and acetaminophen. I will separate the oxycodone and acetaminophen and prescribe oxycodone 5 to 10 mg q.3 hours p.r.n. and leave the acetaminophen orders at 650 mg q.4 hours p.r.n. 4. Status post hypoxemic respiratory failure. Continue oxygen. Continue incentive spirometry 10 breaths q.1 hour while awake. 5. Hypertension. Continue current blood pressure medications and monitor her blood pressure. 6. Anemia. Check CBC in the morning and will follow blood counts on a p.r.n. basis throughout her stay to assure that her anemia is resolving. Depending on red blood cell indices and level of anemia, consider checking an iron panel, though she has had a blood transfusion, which typically replenishes iron. 7. Restless leg syndrome, including upper and lower extremity symptoms. Continue pramipexole. 8. Opiate-induced constipation, as well as nausea. Continue polyethylene glycol, senna, simethicone, and ondansetron as ordered out of the hospital. 9. History of anxiety versus depression. Continue escitalopram. 10. Prophylaxis. Continue enoxaparin 40 mg subcutaneous q. day at a prophylactic dose to prevent DVT. Continue famotidine for GI prophylaxis. She is to wear an [place] brace whenever she is out of bed. She has a surgical drain in place, and it is to remain in place until there is zero output. 11. Followup. She will see Dr. Kuhn in followup at [facility]. Primary care provider is Dr. Makayla Draper. /[id number]/MODL MTDD
[2018-06-12] MEDS: GABAPENTIN 400 MG CAP PO SCH ×2 (16:39→21:37)
[2018-06-12] MEDS: POLYETHYLENE GLYCOL 3350 17 GM PKT PO SCH ×2 (16:39→19:50)
[2018-06-12] MEDS: ACETAMINOPHEN 325 MG TAB PO PRN (16:40)
[2018-06-12] MEDS: CYCLOBENZAPRINE 10 MG TAB PO PRN (19:52)
[2018-06-12] MEDS: METOPROLOL SUCCINATE XR 25 MG TAB PO SCH (19:53)
[2018-06-12] MEDS: PRAMIPEXOLE 0.25 MG TAB PO SCH (19:53)
[2018-06-12] MEDS: oxyCODONE IR 5 MG TAB PO PRN (19:53)
[2018-06-12] MEDS: SENNOSIDES 1 TAB PO SCH (19:54)
[2018-06-12] MEDS ORDERED: FAMOTIDINE 20 MG TAB PO SCH (21:00)
[2018-06-12] MEDS ORDERED: VANCOMYCIN 1250 MG IV SCH (21:00)
[2018-06-12] MEDS: VANCOMYCIN 1.25 GM in NS 250 ML IV SCH (21:42)
[2018-06-13] MEDS: oxyCODONE IR 5 MG TAB PO PRN ×5 (00:26→22:45)
[2018-06-13] MEDS: ACETAMINOPHEN 325 MG TAB PO PRN ×2 (07:51→13:46)
[2018-06-13 08:18] LABS: PLATELET COUNT 213 10^3/uL (150-400)
[2018-06-13] MEDS: VANCOMYCIN 1.25 GM in NS 250 ML IV SCH ×2 (08:48→20:10)
[2018-06-13] MEDS: HYDROCHLOROTHIAZIDE 25 MG TAB PO SCH (08:49)
[2018-06-13] MEDS: ESCITALOPRAM OXALATE 10 MG TAB PO SCH (08:49)
[2018-06-13] MEDS: GABAPENTIN 400 MG CAP PO SCH ×3 (08:49→20:59)
[2018-06-13] MEDS: PANTOPRAZOLE SODIUM 40 MG TAB PO SCH (08:50)
[2018-06-13] MEDS: PRAMIPEXOLE 0.25 MG TAB PO SCH ×3 (08:51→21:03)
[2018-06-13] MEDS: POLYETHYLENE GLYCOL 3350 17 GM PKT PO SCH ×3 (08:52→21:00)
[2018-06-13] MEDS: SENNOSIDES 1 TAB PO SCH ×2 (08:52→20:59)
[2018-06-13] MEDS: ENOXAPARIN 40 MG/0.4 ML SYR SC SCH (08:52)
[2018-06-13] MEDS ORDERED: ACETAMINOPHEN 325 MG SUPP PR PRN (09:50)
--- NOTE | 2018-06-13 10:01 | SOAPPROG ---
SOAP Progress Note Assessment/Plan: Assessment/Plan: Ms. Patrick is a 72 y/o female with recent extension of her thoraco/sacral fusion. PLAN: 1. Debility status post T9 to S1 spinal fusion as a revision of a prior T6 to S1 spinal fusion on 06/05/2018. PT and OT to optimize mobility and activities of daily living toward the modified independent level. 2. Bacteremia status post surgery. She is on vancomycin, which will be continued. Infectious Disease has been consulted to assist in management. - PICC placed on 06/12/18 - CBC/CMP - stable on 06/13 3. Pain management. Hospital discharge medications seem to include only an oxycodone-acetaminophen combination pill and acetaminophen. I will separate the oxycodone and acetaminophen - oxycodone 5 to 10 mg q.3 hours p.r.n. - tylenol 325mg q6hrs prn 4. Status post hypoxemic respiratory failure. Continue oxygen. Continue incentive spirometry 10 breaths q.1 hour while awake. 5. Hypertension. Continue current blood pressure medications and monitor her blood pressure. 6. Anemia. Check CBC in the morning and will follow blood counts on a p.r.n. basis throughout her stay to assure that her anemia is resolving. Depending on red blood cell indices and level of anemia, consider checking an iron panel, though she has had a blood transfusion, which typically replenishes iron. 7. Restless leg syndrome, including upper and lower extremity symptoms. Continue pramipexole. 8. Opiate-induced constipation, as well as nausea. Continue polyethylene glycol, senna, simethicone, and ondansetron as ordered out of the hospital. 9. History of anxiety versus depression. Continue escitalopram. 10. Prophylaxis. Continue enoxaparin 40 mg subcutaneous q. day at a prophylactic dose to prevent DVT. Continue famotidine for GI prophylaxis. She is to wear an [place] brace whenever she is out of bed. She has a surgical drain in place, and it is to remain in place until there is zero output. 11. Followup. She will see Dr. Kuhn in followup at [facility]. Primary care provider is Dr. Makayla Draper. 12. Wound care orders are not included in the discharge paperwork. Will discuss with Nursing regarding nurse to nurse report to clarify dressing changes and wound care. Pt doing well today - Her labs have remained stable. Did well getting her PICC yesterday and tolerating the antibiotic. Pt having some sternal pain - will trial a lidocaine patch to provide support/relief. Discussed importance of using the incentive spirometer every 1hr to keep her lungs well ventilated. Will also increase the tylenol to q6hrs prn. Pt asking to have her Pramipexole changed to home dosing schedule. 06/13/18 09:56 Subjective: Feeling pretty good today. just finished working with therapy and feeling tired but pain overall is being pretty well managed. Did report + BM today. no Change in breathing - having some pain over the sternum - since the surgery. Getting somewhat better. no new concerns Objective: Vital Signs Temp Pulse Resp BP Pulse Ox 99.0 F 68 16 111/56 L 97 06/13/18 05:49 06/13/18 05:49 06/13/18 05:49 06/13/18 08:49 06/13/18 05:49 Laboratory Results 06/13/18 06:00 06/12/18 20:00 06/12/18 06/13/18 06/14/18 05:59 05:59 05:59 Intake Total 300 Output Total 480 Balance -180 Physical Exam - Physical Exam General Appearance: alert, other (appears mildly uncomfortable but very pleasant ) EENT: PERRL/EOMI Respiratory: other (somewhat shallow breaths. good aeration with prompting. Pt with some pain over the lower 1/3 of the sternum- worse over the costo/ sternal junction with palpation. ) Cardiac/Chest: regular rate, rhythm Abdomen: normal bowel sounds, non-tender, soft Skin: other (warm over the UE/LE) Extremities: other (no LE swelling noted on exam today) Neuro/Psych: alert ICD10 Worksheet Patient Problems: Problems Problem Status Onset Fusion of spine of thoracolumbar region Acute
[2018-06-13] MEDS: LIDOCAINE 4%/MENTHOL 1% PATCH TD SCH (11:07)
[2018-06-13] MEDS: ONDANSETRON DISINTEGRATING 4 MG TAB PO PRN (20:18)
[2018-06-13] MEDS: METOPROLOL SUCCINATE XR 25 MG TAB PO SCH (20:58)
[2018-06-13] MEDS: PATCH REMOVAL 1 EA PATCH TD SCH (21:15)
[2018-06-14] MEDS ORDERED: HYDROmorphONE/DILAUDID 2 MG/ML INJ IVP PRN (00:52)
[2018-06-14] MEDS: ACETAMINOPHEN 325 MG TAB PO PRN ×2 (04:16→16:41)
[2018-06-14] MEDS: DICLOFENAC SODIUM 1% 100 GM GEL TP SCH ×4 (06:20→20:13)
[2018-06-14] MEDS: oxyCODONE IR 5 MG TAB PO PRN ×2 (07:36→18:08)
[2018-06-14] MEDS: VANCOMYCIN 1.25 GM in NS 250 ML IV SCH ×2 (08:48→20:11)
[2018-06-14] MEDS: LIDOCAINE 4%/MENTHOL 1% PATCH TD SCH (09:13)
[2018-06-14] MEDS: ESCITALOPRAM OXALATE 10 MG TAB PO SCH (09:13)
[2018-06-14] MEDS: PANTOPRAZOLE SODIUM 40 MG TAB PO SCH (09:13)
[2018-06-14] MEDS: GABAPENTIN 400 MG CAP PO SCH ×3 (09:13→22:15)
[2018-06-14] MEDS: ENOXAPARIN 40 MG/0.4 ML SYR SC SCH (09:13)
[2018-06-14] MEDS: HYDROCHLOROTHIAZIDE 25 MG TAB PO SCH (09:14)
[2018-06-14] MEDS: SENNOSIDES 1 TAB PO SCH ×2 (09:14→21:10)
[2018-06-14] MEDS: POLYETHYLENE GLYCOL 3350 17 GM PKT PO SCH ×3 (09:14→21:10)
--- NOTE | 2018-06-14 09:55 | SOAPPROG ---
SOAP Progress Note Assessment/Plan: Assessment/Plan: Ms. Patrick is a 72 y/o female with recent extension of her thoraco/sacral fusion 09/19 ongoing weakness PLAN: #. Debility status post T9 to S1 spinal fusion as a revision of a prior T6 to S1 spinal fusion on 06/05/2018. PT and OT to optimize mobility and activities of daily living toward the modified independent level. #. Bacteremia status post surgery. She is on vancomycin, which will be continued. Infectious Disease has been consulted to assist in management. - PICC placed on 06/12/18 - CBC/CMP - stable on 06/13 #. Pain management. Hospital discharge medications seem to include only an oxycodone-acetaminophen combination pill and acetaminophen. I will separate the oxycodone and acetaminophen - oxycodone 5 to 10 mg q.3 hours p.r.n. - tylenol 325mg q6hrs prn # Sternal/musculoskeletal chest pain - Awaiting the read from the X-ray today. Pt up to a 9.5/10 last night, now at a 09/27. - Added Dilaudid 0.2mg IV 06/13 - to help with severe pain (helped tremendously last night - Placed Voltaren Gel order for concern of a musculoskeletal concern - Will get full panel of labs today to include gastrointestinal labs (lipase/ amylase/LFT's), will also repeat CBC and get Trop - Reached out to [facility] to have records sent of the CTA chest. also to have a CD sent to be uploaded to our system - May trial an addition of a acid neutralizing agent tonight (pt reporting some burning feeling associated with the throbbing) - Discussed with On-call NSG - Dr. Moyer. Potentially could be from prolonged time on stomach. Will review the images and call if concerns. Will get a message to Dr. Kuhn's team for them to touch base with our team tomorrow. - Spent additional 20 minutes with family providing education/support. Additional 25 minutes coordinating care and reviewing imaging #. Status post hypoxemic respiratory failure. Continue oxygen. Continue incentive spirometry 10 breaths q.1 hour while awake. #. Hypertension. Continue current blood pressure medications and monitor her blood pressure. #. Anemia. Check CBC in the morning and will follow blood counts on a p.r.n. basis throughout her stay to assure that her anemia is resolving. Depending on red blood cell indices and level of anemia, consider checking an iron panel, though she has had a blood transfusion, which typically replenishes iron. #. Restless leg syndrome, including upper and lower extremity symptoms. Continue pramipexole. #. Opiate-induced constipation. Continue polyethylene glycol, senna, simethicone, and ondansetron as ordered out of the hospital. #. History of anxiety versus depression. Continue escitalopram. #. Incision - daily change and monitoring - evaluated on 06/13 - Well approximated without any evidence of infection. RN's to redress daily #. Prophylaxis. Continue enoxaparin 40 mg subcutaneous q. day at a prophylactic dose to prevent DVT. Continue famotidine for GI prophylaxis. She is to wear an [facility] brace whenever she is out of bed. She has a surgical drain in place, and it is to remain in place until there is zero output. #. Followup. She will see Dr. Kuhn in followup at [facility]. Primary care provider is Dr. Makayla Draper. 06/14/18 10:01 Subjective: Had a rough night last night. The pain in the sternal area climbed to around a 9 /10 (likely a 10/10 but always feels that pain could be potentially worse). Reports that this has been happening nearly each night since the surgery - some worse than others. the pain stays in the bottom 1/3 of the sternal area- throbbing, maybe some burning. Last night slightly moved out under the breasts. This morning it is a 2/10. Feels that is usually worse with laying down. NO associated SOB (not more than what is caused from pain with deep breathing). Doesn't feel that her heart is racing/palpitations. No pain travelling into the esophagus. Have recently completed extensive cardiac workup without concerning findings. Was able to talk with [place]. Moyer -[place] [facility] reports that can have pain 2/2 from prolonged prone positioning. Maybe some referred pain/radiating from the all the muscle take town around the ribs to get to the surgical site. He will located the CTA chest that was taken on 06/09 to see if anything obvious from a surgical standpoint. Objective: Vital Signs Temp Pulse Resp BP Pulse Ox 98.5 F 59 L 16 123/64 H 93 06/14/18 06:43 06/14/18 09:02 06/14/18 09:02 06/14/18 09:14 06/14/18 09:02 Laboratory Results 06/13/18 06:00 06/12/18 20:00 06/13/18 06/14/18 06/15/18 05:59 05:59 05:59 Intake Total 300 850 Output Total 480 320 Balance -180 530 Physical Exam - Physical Exam General Appearance: alert, other (Appears to be mildly uncomfortable this morning. Slightly emotional with all the pain/debility 2/2 to these large surgeries. ) EENT: PERRL/EOMI Respiratory: other (breath sounds more shallow and in bilateral based. clear otherwise. ) Cardiac/Chest: regular rate, rhythm Abdomen: normal bowel sounds, non-tender Skin: normal color Neuro/Psych: alert, oriented x 3 ICD10 Worksheet Patient Problems: Problems Problem Status Onset Fusion of spine of thoracolumbar region Acute
[2018-06-14 11:44] LABS: PLATELET COUNT 211 10^3/uL (150-400)
[2018-06-14] MEDS: PRAMIPEXOLE 0.25 MG TAB PO SCH ×2 (16:41→20:12)
[2018-06-14] MEDS: CALCIUM CARBONATE 500 MG CHEWABLE TAB PO PRN ×2 (18:08→20:12)
[2018-06-14] MEDS: METOPROLOL SUCCINATE XR 25 MG TAB PO SCH (20:12)
[2018-06-14] MEDS: PATCH REMOVAL 1 EA PATCH TD SCH (21:10)
[2018-06-15] MEDS: ACETAMINOPHEN 325 MG TAB PO PRN ×2 (00:47→21:09)
[2018-06-15] MEDS: oxyCODONE IR 5 MG TAB PO PRN ×5 (00:47→21:10)
[2018-06-15] MEDS: DICLOFENAC SODIUM 1% 100 GM GEL TP SCH ×4 (06:25→20:12)
[2018-06-15] MEDS: VANCOMYCIN 1.25 GM in NS 250 ML IV SCH ×2 (07:51→17:21)
[2018-06-15] MEDS: SENNOSIDES 1 TAB PO SCH ×2 (07:51→19:12)
[2018-06-15] MEDS: POLYETHYLENE GLYCOL 3350 17 GM PKT PO SCH (07:52)
[2018-06-15] MEDS: GABAPENTIN 400 MG CAP PO SCH ×3 (08:26→20:02)
[2018-06-15] MEDS: ENOXAPARIN 40 MG/0.4 ML SYR SC SCH (08:26)
[2018-06-15] MEDS: ESCITALOPRAM OXALATE 10 MG TAB PO SCH (08:27)
[2018-06-15] MEDS: PANTOPRAZOLE SODIUM 40 MG TAB PO SCH (08:27)
[2018-06-15] MEDS: HYDROCHLOROTHIAZIDE 25 MG TAB PO SCH (08:34)
[2018-06-15] MEDS ORDERED: POLYETHYLENE GLYCOL 3350 17 GM PKT PO PRN (09:13)
--- NOTE | 2018-06-15 09:31 | SOAPPROG ---
SOAP Progress Note Assessment/Plan: Assessment: Debility status post T9 to S1 spinal fusion as a revision of a prior T6 to S1 spinal fusion on 06/05/2018. * Initial functional independence measure is 92 on 06/15/2018. She needs minimal to moderate assist for bed mobility perm primarily to get her legs in a bed. She ambulated 100 ft with a front wheeled walker and standby assist. She has decreased endurance. She climbed and descended 6 steps with bilateral rails with standby assist. She did grooming and hygiene standing with supervision and a front wheeled walker. Upper body and lower body dressing done with setup/supervision. Bathing required minimal assist; transfer required contact guard assist. Toilet transfer required close supervision and toileting was done with supervision. * Continue PT and OT to optimize mobility and activities of daily living toward the modified independent level. Bacteremia status post surgery. She is on vancomycin, which will be continued. Infectious Disease has been consulted to assist in management. Pain management. Continue oxycodone and acetaminophen p.r.n. Hydromorphone IV was ordered per cross cover for sternal pain but not used yesterday. Also has Voltaren gel and lidocaine patch for sternal pain. Status post hypoxemic respiratory failure. * Chest x-ray 06/14/2018 showed mild cardiomegaly and pleural effusions. Consider increasing diuresis by substituting furosemide for hydrochlorothiazide. * Continue oxygen. Continue incentive spirometry 10 breaths q.1 hour while awake. Hypertension. Continue current blood pressure medications and monitor her blood pressure. Anemia. Improving on CBC 06/13/2018 and 06/14/2018, with hemoglobin 9.1 and hematocrit 30.1. Normal MCV. Will not order iron studies Restless leg syndrome, including upper and lower extremity symptoms. Continue pramipexole. Opiate-induced constipation, as well as nausea. Continue polyethylene glycol, senna, simethicone, and ondansetron as ordered out of the hospital. History of anxiety versus depression. Continue escitalopram. Prophylaxis. Continue enoxaparin 40 mg subcutaneous q. day at a prophylactic dose to prevent DVT. Continue famotidine for GI prophylaxis. She is to wear an [place] brace whenever she is out of bed. She has a surgical drain in place, and it is to remain in place until there is zero output. DISPOSITION: Attended staffing, 15 minutes. Discussed with rifle case repairer, dietitian, nursing, PT, OT. Lives with her , 16 steps to enter the home. With decreased endurance and hypoxia, it will take some time for her to accomplish goals. Discharge date set for 07/05/2018. FOLLOW-UP. She will see Dr. Kuhn in followup at [facility]. Primary care provider is Dr. Makayla Draper. 06/15/18 10:49 Subjective: Sternal pain is somewhat improved. Sleep was interrupted by being up to the bathroom to urinate x3. No cough or dyspnea. No fevers or chills. Objective: Vital Signs Temp Pulse Resp BP Pulse Ox 37.1 C 60 18 110/68 94 06/14/18 18:27 06/14/18 20:12 06/14/18 18:27 06/15/18 08:34 06/14/18 18:27 Laboratory Results 06/14/18 10:31 06/14/18 10:31 06/14/18 06/15/18 06/16/18 05:59 05:59 05:59 Intake Total 850 1520 200 Output Total 320 345 5 Balance 530 1175 195 - Time Spent With Patient Time Spent With Patient: Greater than 35 min floor time today, including more than 50% of time in coordination of care during staffing meeting, and counseling patient and . Physical Exam - Physical Exam General Appearance: WD/WN, alert, no apparent distress Respiratory: normal breath sounds, No crackles, No rhonchi, No wheezing Cardiac/Chest: regular rate, rhythm, edema (1 - 2 + bilateral pretibial), No JVD Skin: normal color, warm/dry Neuro/Psych: no motor/sensory deficits, alert, normal mood/affect, oriented x 3 ICD10 Worksheet Patient Problems: Problems Problem Status Onset Fusion of spine of thoracolumbar region Acute
--- NOTE | 2018-06-15 09:33 | PDOREHIP ---
Admission [facility] - Admission - 3 Day Assessment Period Admission Date/Day 1: 06/12/18 Day 2: 06/13/18 Day 3: 06/14/18 - Active Diagnoses Comorbidities and Co-existing Conditions at Admission: 16164. None of the Above - Skin Conditions Unhealed Pressure Ulcer (1 or more/Stage 1 or >)-Admission: 0. No # Stage 1 Pressure Ulcers-Admission: 0 # Stage 2 Pressure Ulcers-Admission: 0 # Stage 3 Pressure Ulcers-Admission: 0 # Stage 4 Pressure Ulcers-Admission: 0 # Unstageable Pressure Ulcers (Non-remove Dress)-Admission: 0 # Unstageable Pressure Ulcers (Slough/Eschar)-Admission: 0 # Unstageable Pressure Ulcers (Deep Tissue Injury)-Admission: 0
[2018-06-15] MEDS: LIDOCAINE 4%/MENTHOL 1% PATCH TD SCH (10:41)
[2018-06-15] MEDS: PRAMIPEXOLE 0.25 MG TAB PO SCH ×2 (16:35→20:02)
[2018-06-15] MEDS: METOPROLOL SUCCINATE XR 25 MG TAB PO SCH (20:03)
[2018-06-15] MEDS: CYCLOBENZAPRINE 10 MG TAB PO PRN (22:00)
[2018-06-15] MEDS: PATCH REMOVAL 1 EA PATCH TD SCH (22:19)
[2018-06-16] MEDS: ACETAMINOPHEN 325 MG TAB PO PRN ×2 (04:39→19:16)
[2018-06-16] MEDS: oxyCODONE IR 5 MG TAB PO PRN ×3 (04:40→19:16)
[2018-06-16] MEDS: VANCOMYCIN 1.25 GM in NS 250 ML IV SCH ×2 (05:19→18:43)
[2018-06-16] MEDS: DICLOFENAC SODIUM 1% 100 GM GEL TP SCH ×4 (06:04→20:05)
[2018-06-16] MEDS: ENOXAPARIN 40 MG/0.4 ML SYR SC SCH (08:28)
[2018-06-16] MEDS: HYDROCHLOROTHIAZIDE 25 MG TAB PO SCH (08:29)
[2018-06-16] MEDS: PANTOPRAZOLE SODIUM 40 MG TAB PO SCH (08:33)
[2018-06-16] MEDS: GABAPENTIN 400 MG CAP PO SCH ×3 (08:33→20:03)
[2018-06-16] MEDS: LIDOCAINE 4%/MENTHOL 1% PATCH TD SCH (08:34)
[2018-06-16] MEDS: ESCITALOPRAM OXALATE 10 MG TAB PO SCH (08:34)
[2018-06-16 09:50] LABS: PLATELET COUNT 212 10^3/uL (150-400)
[2018-06-16] MEDS: SENNOSIDES 1 TAB PO SCH ×2 (09:55→20:24)
[2018-06-16] MEDS: ONDANSETRON DISINTEGRATING 4 MG TAB PO PRN (11:29)
--- NOTE | 2018-06-16 12:00 | SOAPPROG ---
SOAP Progress Note Assessment/Plan: Assessment: Debility status post T9 to S1 spinal fusion as a revision of a prior T6 to S1 spinal fusion on 06/05/2018. * Initial functional independence measure is 92 on 06/15/2018. She needs minimal to moderate assist for bed mobility perm primarily to get her legs in a bed. She ambulated 100 ft with a front wheeled walker and standby assist. She has decreased endurance. She climbed and descended 6 steps with bilateral rails with standby assist. She did grooming and hygiene standing with supervision and a front wheeled walker. Upper body and lower body dressing done with setup/supervision. Bathing required minimal assist; transfer required contact guard assist. Toilet transfer required close supervision and toileting was done with supervision. * Continue PT and OT to optimize mobility and activities of daily living toward the modified independent level. Bacteremia status post surgery. She is on vancomycin, which will be continued. Infectious Disease is assisted in management. Pain management. Continue oxycodone and acetaminophen p.r.n. Hydromorphone IV was ordered per cross cover for sternal pain but not used yesterday. Also has Voltaren gel and lidocaine patch for sternal pain. Status post hypoxemic respiratory failure. * Chest x-ray 06/14/2018 showed mild cardiomegaly and pleural effusions. * Continue oxygen. Continue incentive spirometry 10 breaths q.1 hour while awake. * Will initiate furosemide 06/17/18. Daily weights. Hypertension. Continue current blood pressure medications and monitor her blood pressure. * D/C HCTZ while she's on furosemide. Anemia. Improving on CBC 06/13/2018 and 06/14/2018, with hemoglobin 9.1 and hematocrit 30.1. Normal MCV. Will not order iron studies. * Stable on CBC 06/16/2018. Restless leg syndrome, including upper and lower extremity symptoms. Continue pramipexole. Opiate-induced constipation, as well as nausea. Continue polyethylene glycol, senna, simethicone, and ondansetron as ordered out of the hospital. History of anxiety versus depression. Continue escitalopram. Prophylaxis. Continue enoxaparin 40 mg subcutaneous q. day at a prophylactic dose to prevent DVT. Continue famotidine for GI prophylaxis. She is to wear an [place] brace whenever she is out of bed. She has a surgical drain in place, and it is to remain in place until there is zero output. DISPOSITION: Lives with her , 16 steps to enter the home. With decreased endurance and hypoxia, it will take some time for her to accomplish goals. Discharge date set for 06/25/2018. Will have home PT and OT. FOLLOW-UP. She will see Dr. Kuhn in followup at [facility] on 06/26/2018. Primary care provider is Dr. Makayla Draper. 06/16/18 11:57 Subjective: Complains of nausea. Came on in the late morning. She was at rest and getting ready to go the bathroom. No abdominal pain, no diarrhea or constipation, no change in appetite. No chest pain or palpitations. Objective: Vital Signs Temp Pulse Resp BP Pulse Ox 36.8 C 53 L 18 137/67 H 95 06/16/18 05:28 06/16/18 05:28 06/16/18 05:28 06/16/18 08:29 06/16/18 05:28 Laboratory Results 06/16/18 09:00 06/16/18 09:00 06/15/18 06/16/18 06/17/18 05:59 05:59 05:59 Intake Total 1520 1700 Output Total 345 5 Balance 1175 1695 Physical Exam - Physical Exam General Appearance: WD/WN, alert, no apparent distress Respiratory: normal breath sounds, No crackles, No rhonchi, No wheezing Cardiac/Chest: regular rate, rhythm, edema (2 to 3+ bilateral lower extremities) , No diastolic murmur, No systolic murmur Abdomen: normal bowel sounds, non-tender, soft, No distended Neuro/Psych: no motor/sensory deficits, alert, normal mood/affect, oriented x 3 ICD10 Worksheet Patient Problems: Problems Problem Status Onset Fusion of spine of thoracolumbar region Acute
[2018-06-16] MEDS: PRAMIPEXOLE 0.25 MG TAB PO SCH ×2 (17:25→20:03)
[2018-06-16] MEDS: METOPROLOL SUCCINATE XR 25 MG TAB PO SCH (20:03)
[2018-06-16] MEDS: PATCH REMOVAL 1 EA PATCH TD SCH (20:08)
[2018-06-17] MEDS: oxyCODONE IR 5 MG TAB PO PRN ×3 (01:50→20:39)
[2018-06-17] MEDS: DICLOFENAC SODIUM 1% 100 GM GEL TP SCH ×4 (05:44→20:45)
[2018-06-17] MEDS: ENOXAPARIN 40 MG/0.4 ML SYR SC SCH (07:22)
[2018-06-17] MEDS: LIDOCAINE 4%/MENTHOL 1% PATCH TD SCH (07:22)
[2018-06-17] MEDS: SENNOSIDES 1 TAB PO SCH ×3 (07:25→20:38)
[2018-06-17] MEDS: ESCITALOPRAM OXALATE 10 MG TAB PO SCH (07:25)
[2018-06-17] MEDS: GABAPENTIN 400 MG CAP PO SCH ×3 (07:25→20:38)
[2018-06-17] MEDS: PANTOPRAZOLE SODIUM 40 MG TAB PO SCH (07:26)
[2018-06-17] MEDS: FUROSEMIDE 20 MG TAB PO SCH (07:26)
[2018-06-17] MEDS ORDERED: VANCOMYCIN HCL/NORMAL SALINE 250 ML IV SCH (08:30)
[2018-06-17] MEDS ORDERED: VANCOMYCIN 1 GM in NS 250 ML IV SCH (08:30)
--- NOTE | 2018-06-17 10:30 | SOAPPROG ---
SOAP Progress Note Assessment/Plan: Assessment: Debility status post T9 to S1 spinal fusion as a revision of a prior T6 to S1 spinal fusion on 06/05/2018. * Initial functional independence measure is 92 on 06/15/2018. She needs minimal to moderate assist for bed mobility primarily to get her legs in a bed. She ambulated 100 ft with a front wheeled walker and standby assist. She has decreased endurance. She climbed and descended 6 steps with bilateral rails with standby assist. She did grooming and hygiene standing with supervision and a front wheeled walker. Upper body and lower body dressing done with setup/ supervision. Bathing required minimal assist; transfer required contact guard assist. Toilet transfer required close supervision and toileting was done with supervision. * Continue PT and OT to optimize mobility and activities of daily living toward the modified independent level. Bacteremia status post surgery. She is on vancomycin, which will be continued. Infectious Disease is assisting in management. Pain management. Continue oxycodone and acetaminophen p.r.n. Hydromorphone IV was ordered per cross cover for sternal pain but not used since 06/14/2018. Also has Voltaren gel and lidocaine patch for sternal pain. Status post hypoxemic respiratory failure. * Chest x-ray 06/14/2018 showed mild cardiomegaly and pleural effusions. * Continue oxygen. Continue incentive spirometry 10 breaths q.1 hour while awake. * Initiated furosemide 06/17/18. Daily weights. Hypertension. Continue current blood pressure medications and monitor her blood pressure. * D/C HCTZ while she's on furosemide. Anemia. Improving on CBC 06/13/2018 and 06/14/2018, with hemoglobin 9.1 and hematocrit 30.1. Normal MCV. Will not order iron studies. * Stable on CBC 06/16/2018. Restless leg syndrome, including upper and lower extremity symptoms. Continue pramipexole. Opiate-induced constipation, as well as nausea. Continue polyethylene glycol, senna, simethicone, and ondansetron as ordered out of the hospital. History of anxiety versus depression. Continue escitalopram. Prophylaxis. Continue enoxaparin 40 mg subcutaneous q. day at a prophylactic dose to prevent DVT. Continue famotidine for GI prophylaxis. She is to wear an [place] brace whenever she is out of bed. She has a surgical drain in place, and it is to remain in place until there is zero output. DISPOSITION: Lives with her , 16 steps to enter the home. With decreased endurance and hypoxia, it will take some time for her to accomplish goals. Discharge date set for 06/25/2018. Will have home PT and OT. FOLLOW-UP. She will see Dr. uKhn in followup at [facility] on 06/26/2018. Primary care provider is Dr. Makayla Draper. 06/17/18 10:27 Subjective: Reports increased urination with furosemide this morning. Does not feel dyspneic. No cough. Had increased pain overnight and took oxycodone with relief. No nausea today. Objective: Vital Signs Temp Pulse Resp BP Pulse Ox 36.8 C 64 18 123/50 H 85 L 06/17/18 05:41 06/17/18 05:41 06/17/18 05:41 06/17/18 05:41 06/17/18 05:41 Laboratory Results 06/16/18 09:00 06/16/18 09:00 06/16/18 06/17/18 06/18/18 05:59 05:59 05:59 Intake Total 1700 1690 120 Output Total 35 742.5 Balance 1665 947.5 120 Physical Exam - Physical Exam General Appearance: WD/WN, alert, no apparent distress Respiratory: normal breath sounds, No crackles, No rhonchi, No wheezing Cardiac/Chest: regular rate, rhythm, edema (2 to 3+ bilateral pretibial), systolic murmur Skin: normal color, warm/dry Neuro/Psych: no motor/sensory deficits, alert, normal mood/affect, oriented x 3 , abnormal gait (Slow, narrow based, with front wheeled walker.) ICD10 Worksheet Patient Problems: Problems Problem Status Onset Fusion of spine of thoracolumbar region Acute
[2018-06-17] MEDS: PRAMIPEXOLE 0.25 MG TAB PO SCH ×2 (14:53→20:38)
[2018-06-17] MEDS: VANCOMYCIN 1 GM in NS 250 ML IV SCH (17:22)
[2018-06-17] MEDS: METOPROLOL SUCCINATE XR 25 MG TAB PO SCH (20:38)
[2018-06-17] MEDS: PATCH REMOVAL 1 EA PATCH TD SCH (20:45)
[2018-06-18] MEDS: oxyCODONE IR 5 MG TAB PO PRN ×2 (03:19→20:36)
[2018-06-18] MEDS: VANCOMYCIN 1 GM in NS 250 ML IV SCH (06:08)
[2018-06-18] MEDS: DICLOFENAC SODIUM 1% 100 GM GEL TP SCH ×4 (06:16→20:35)
[2018-06-18] MEDS: LIDOCAINE 4%/MENTHOL 1% PATCH TD SCH (07:56)
[2018-06-18] MEDS: ENOXAPARIN 40 MG/0.4 ML SYR SC SCH (07:56)
[2018-06-18] MEDS: GABAPENTIN 400 MG CAP PO SCH ×3 (07:57→20:36)
[2018-06-18] MEDS: SENNOSIDES 1 TAB PO SCH (07:57)
[2018-06-18] MEDS: FUROSEMIDE 20 MG TAB PO SCH (07:57)
[2018-06-18] MEDS: PANTOPRAZOLE SODIUM 40 MG TAB PO SCH (07:57)
[2018-06-18] MEDS: ESCITALOPRAM OXALATE 10 MG TAB PO SCH (07:57)
--- NOTE | 2018-06-18 08:25 | PCMIDPN ---
Assessment/Plan: # Deep postop wound infection with Corynebacterium and coagulase-negative Staph. Staph epidermidis is resistant to oxacillin, intermediate to clindamycin and erythromycin. LISA to vancomycin is 0.5. AF. WBC normalized. Much less R leg pain --plan to continue 6 weeks of IV vancomycin continuous infusion 2.5 g through . Alternatively, if patient cannot have home health arranged would recommend daptomycin via the infusion center 500 mg IV daily. Stop date 2017 --Cr has been stable --recheck trough this afternoon Medications 3 Generic Name Dose Route Start Last Admin Trade Name Freq PRN Reason Stop Dose Admin Vancomycin HCl 1 gm/ Sodium 250 mls @ 250 mls/hr 06/17/18 18:00 06/18/18 06: 08 Chloride IV 07/17/18 17:59 250 mls Q12H JENNIFER Subjective: 72-year-old woman known to me with nonhealing wound following T9 through S1 fusion on 04/16/2018. Wound cultures grew Corynebacterium and short antibiotic course of p.o. Keflex resulted in no changes in the wound. In addition patient had a migrated screw following the surgery leading to severe right leg pain. It was decided to redo the procedure on 06/05/2018 when she had a replacement of hardware T9 through S1 and removal of right screw at L5 as well as wound debridement. Cultures from that procedure showed Staph epidermidis. Patient was started on cefazolin and vancomycin 06/05/2018. Cefazolin was discontinued 06/12/2018 and patient has been maintained on vancomycin. Patient is doing quite well in rehab and her right leg pain has completely resolved. She denies any side effects related to vancomycin. Objective: Vital Signs Temp Pulse Resp BP Pulse Ox 36.8 C 56 L 15 134/61 H 94 06/18/18 06:19 06/18/18 06:19 06/18/18 06:19 06/18/18 06:19 06/18/18 06:19 Laboratory Results 06/16/18 09:00 06/16/18 09:00 06/17/18 06/18/18 06/19/18 05:59 05:59 05:59 Intake Total 1690 1360 500 Output Total 742.5 8 5 Balance 947.5 1352 495 - Physical Exam General Appearance: alert, no apparent distress EENT: pale conjunctiva, No thrush Respiratory: lungs clear, No accessory muscle use Cardiac/Chest: regular rate, rhythm, No systolic murmur Extremities: No pedal edema Abdomen: non-tender, soft Back: other (Long incision along the T and lumbar spine, [place] drain with a small amount of serosanguineous fluid, no drainage along the incision,no erythema) Skin: other (Skin tear left wrist), No rash Neuro/Psych: alert, normal mood/affect, oriented x 3 - Line/s RUE PICC Lines: No drainage, No erythema - Time Spent With Patient Time Spent with Patient: greater than 35 minutes Time Spent with Patient: Greater than 35 minutes spent on this patients care, greater than 50% of time spent counseling, educating, and coordinating care regarding the above mentioned plan. ICD10 Worksheet Patient Problems: Problems Problem Status Onset Fusion of spine of thoracolumbar region Acute
[2018-06-18] MEDS: ONDANSETRON DISINTEGRATING 4 MG TAB PO PRN (10:07)
[2018-06-18] MEDS ORDERED: FUROSEMIDE 40 MG TAB PO ONE (10:14)
[2018-06-18] MEDS ORDERED: POTASSIUM CL 20 MEQ TAB PO SCH (10:15)
--- NOTE | 2018-06-18 10:27 | SOAPPROG ---
SOAP Progress Note Assessment/Plan: 72-year-old woman status post T9-S1 spinal fusion as a revision to prior T6-S1 spinal fusion on 06/05/2018 with impairments in mobility and self-care. Today's update: Today she is experiencing intermittent bradycardia, also intermittent nausea. It appears that the bradycardia and the nausea are occurring at the same time. She is followed by Dr. Campos in Cardiology at [facility]. Reportedly has a normal echo from a year ago. She is also noted to have increase in swelling in her legs is pointed out by the therapists and staff, increasing Lasix to 40 mg twice a day with an extra 40 mg p.o. Now. Starting potassium 20 mEq daily, also in the setting of low serum protein, checking synthetic function of the liver including INR and PTT. Changed her diet to 2 g of sodium daily. Also stopped metoprolol in the setting of what seems to be possibly symptomatic bradycardia. Also in the setting of lower extremity swelling obtaining a D-dimer for relatively low probability of a DVT. Obtaining ECG in the setting of bradycardia. Most likely etiology of her symptoms is fluid overload with dependent edema, however need to rule out lower extremity DVT, evaluate for cause of the bradycardia. Plan to discuss further with Dr. Long and consider Cardiology consult. Also stopping medications that she is not using including IV hydromorphone, bisacodyl suppository, milk of magnesium, naloxone, simethicone, and senna. Additional issues reviewed but without change today include bacteremia, appreciate help from Infectious Disease, pain management, status post hypoxemic respiratory failure, anemia, restless leg syndrome, history of anxiety versus depression, prophylaxis. 06/18/18 10:24 06/18/18 10:29 Subjective: Chief complaint: Leg swelling, bradycardia, nausea No acute events overnight. Today, patient noted to have increased leg swelling , also noted by staff today and prior days to have heart rate in the 40s sometimes with associated nausea. Patient denies any new shortness of breath or chest pain, no new numbness, tingling, or weakness. She states she had an echocardiogram with her e commerce solution architect Dr. Campos approximately year ago which was normal. No recent ECG. She is okay with a low-sodium diet. She notes that she has been leaving her legs down and sitting in a chair much more than she was previously. in the room with the patient, involved in care. Objective: Vital Signs Temp Pulse Resp BP Pulse Ox 36.8 C 43 L 18 131/51 H 95 06/18/18 06:19 06/18/18 08:30 06/18/18 08:30 06/18/18 08:30 06/18/18 08:30 Laboratory Results 06/16/18 09:00 06/16/18 09:00 06/17/18 06/18/18 06/19/18 05:59 05:59 05:59 Intake Total 1690 1360 500 Output Total 742.5 8 5 Balance 947.5 1352 495 Physical Exam - Physical Exam General Appearance: WD/WN, alert, mild distress, obese EENT: No scleral icterus (R), No scleral icterus (L) Neck: supple, normal inspection Respiratory: No respiratory distress, No accessory muscle use Cardiac/Chest: edema (2+ to 3+ bilateral lower extremity pitting edema), bradycardia, No regular rate, rhythm (Bradycardic, ranging between 48 and 54), No irregularly irregular Abdomen: non-tender, soft Skin: normal color, warm/dry, No cyanosis, No diaphoresis Extremities: non-tender, pedal edema, No calf tenderness Neuro/Psych: alert, No normal mood/affect (Somewhat low mood) ICD10 Worksheet Patient Problems: Problems Problem Status Onset Fusion of spine of thoracolumbar region Acute
[2018-06-18 12:04] LABS: INR 0.95 (0.83-1.16); PROTIME(PATIENT) 12.9 SEC (12.0-15.0)
[2018-06-18 12:13] LABS: CREATINE KINASE 29 IU/L (0-156)
[2018-06-18] MEDS: PRAMIPEXOLE 0.25 MG TAB PO SCH ×2 (16:16→20:36)
[2018-06-18] MEDS: FUROSEMIDE 40 MG TAB PO SCH (16:38)
[2018-06-18] MEDS: VANCOMYCIN HCL/NORMAL SALINE 250 ML IV SCH (19:04)
[2018-06-18] MEDS: PATCH REMOVAL 1 EA PATCH TD SCH (20:36)
[2018-06-19] MEDS: oxyCODONE IR 5 MG TAB PO PRN ×2 (02:14→22:46)
[2018-06-19] MEDS: VANCOMYCIN HCL/NORMAL SALINE 250 ML IV SCH (09:26)
[2018-06-19] MEDS ORDERED: FUROSEMIDE 40 MG TAB PO SCH (09:47)
[2018-06-19] MEDS: ENOXAPARIN 40 MG/0.4 ML SYR SC SCH (09:49)
[2018-06-19] MEDS: PANTOPRAZOLE SODIUM 40 MG TAB PO SCH (09:51)
[2018-06-19] MEDS: GABAPENTIN 400 MG CAP PO SCH ×3 (09:51→21:31)
[2018-06-19] MEDS: ESCITALOPRAM OXALATE 10 MG TAB PO SCH (09:51)
[2018-06-19] MEDS: POTASSIUM CL 10 MEQ TAB PO SCH (09:52)
--- NOTE | 2018-06-19 10:34 | SOAPPROG ---
SOAP Progress Note Assessment/Plan: Assessment: Debility status post T9 to S1 spinal fusion as a revision of a prior T6 to S1 spinal fusion on 06/05/2018. * Initial functional independence measure is 92 on 06/15/2018. She needs minimal to moderate assist for bed mobility primarily to get her legs in a bed. She ambulated 100 ft with a front wheeled walker and standby assist. She has decreased endurance. She climbed and descended 6 steps with bilateral rails with standby assist. She did grooming and hygiene standing with supervision and a front wheeled walker. Upper body and lower body dressing done with setup/ supervision. Bathing required minimal assist; transfer required contact guard assist. Toilet transfer required close supervision and toileting was done with supervision. * Continue PT and OT to optimize mobility and activities of daily living toward the modified independent level. Bacteremia status post surgery. She is on vancomycin, which will be continued. Infectious Disease is assisting in management. Pain management. Continue oxycodone and acetaminophen p.r.n. Hydromorphone IV was ordered per cross cover for sternal pain but not used since 06/14/2018. Also has Voltaren gel and lidocaine patch for sternal pain. Nausea. * Evaluation 06/18/2018 with normal troponin and normal EKG ruled out [place]; anginal equivalent remains a possibility. Hypoxia, worse on 06/19/2018. * Elevated D-dimer 06/18/2018 may be due to postsurgical state. Ruled out pulmonary chest CT 06/19/2018. * Fluid overload/CHF appears to be responding to furosemide with 1.2 kg weight loss from 06/18/2018 to 06/19/2018. * Continue furosemide. Adjusting dose to 40 mg q.a.m. and 20 mg at 3:00 p.m. in the afternoon starting 06/20/2018 as she had excessive urination interfering with sleep overnight 06/18/2018 to 06/19/2018. Status post hypoxemic respiratory failure. * Chest x-ray 06/14/2018 showed mild cardiomegaly and pleural effusions. * Continue oxygen. Continue incentive spirometry 10 breaths q.1 hour while awake. * Continue furosemide Hypertension. Continue current blood pressure medications and monitor her blood pressure. * D/C HCTZ while she's on furosemide. Anemia. Improving on CBC 06/13/2018 and 06/14/2018, with hemoglobin 9.1 and hematocrit 30.1. Normal MCV. Will not order iron studies. * Stable on CBC 06/16/2018. Recheck 06/20/2018. Restless leg syndrome, including upper and lower extremity symptoms. Continue pramipexole. Opiate-induced constipation, as well as nausea. Continue polyethylene glycol, senna, simethicone, and ondansetron as ordered out of the hospital. History of anxiety versus depression. Continue escitalopram. Prophylaxis. Continue enoxaparin 40 mg subcutaneous q. day at a prophylactic dose to prevent DVT. Continue famotidine for GI prophylaxis. She is to wear an [place] brace whenever she is out of bed. She has a surgical drain in place, and it is to remain in place until there is zero output. DISPOSITION: Lives with her , 16 steps to enter the home. With decreased endurance and hypoxia, it will take some time for her to accomplish goals. Discharge date set for 06/25/2018. Will have home PT and OT. FOLLOW-UP. She will see Dr. Kuhn in followup at [facility] on 06/26/2018. Primary care provider is Dr. Makayla Draper. 06/19/18 15:53 Subjective: Reports she was up several times to urinate overnight. Has increased oxygen need. Denies chest pain, cough, fevers, chills or subjective dyspnea. Objective: Vital Signs Temp Pulse Resp BP Pulse Ox 36.8 C 68 15 113/48 L 89 L 06/19/18 05:49 06/19/18 05:49 06/19/18 05:49 06/19/18 05:49 06/19/18 05:49 Laboratory Results 06/16/18 09:00 06/18/18 10:30 06/18/18 06/19/18 06/20/18 05:59 05:59 05:59 Intake Total 1360 1040 Output Total 8 265 500 Balance 1352 775 -500 PT 12.9 SEC (12.0-15.0) 06/18/18 10:30 INR 0.95 (0.83-1.16) 06/18/18 10:30 Physical Exam - Physical Exam General Appearance: WD/WN, alert, no apparent distress Respiratory: normal breath sounds, crackles (Right base), No rhonchi, No wheezing Cardiac/Chest: regular rate, rhythm, edema (2+ bilateral pretibial), JVD Skin: normal color, warm/dry Neuro/Psych: no motor/sensory deficits, alert, normal mood/affect, oriented x 3 ICD10 Worksheet Patient Problems: Problems Problem Status Onset Fusion of spine of thoracolumbar region Acute
[2018-06-19] MEDS: FUROSEMIDE 40 MG TAB PO SCH (10:36)
[2018-06-19] MEDS ORDERED: IOPAMIDOL (ISOVUE 370) 100 ML BTL IV ONE (11:06)
[2018-06-19] MEDS: LIDOCAINE 4%/MENTHOL 1% PATCH TD SCH (13:13)
[2018-06-19] MEDS ORDERED: FUROSEMIDE 20 MG TAB PO SCH (15:00)
[2018-06-19] MEDS: PRAMIPEXOLE 0.25 MG TAB PO SCH ×2 (15:49→19:58)
[2018-06-19] MEDS: DICLOFENAC SODIUM 1% 100 GM GEL TP SCH (19:58)
[2018-06-19] MEDS: PATCH REMOVAL 1 EA PATCH TD SCH (19:59)
[2018-06-20] MEDS: oxyCODONE IR 5 MG TAB PO PRN ×3 (07:21→19:49)
[2018-06-20 08:19] LABS: PLATELET COUNT 192 10^3/uL (150-400)
[2018-06-20] MEDS: LIDOCAINE 4%/MENTHOL 1% PATCH TD SCH (08:48)
[2018-06-20] MEDS: ENOXAPARIN 40 MG/0.4 ML SYR SC SCH (08:48)
[2018-06-20] MEDS: GABAPENTIN 400 MG CAP PO SCH ×3 (08:49→22:23)
[2018-06-20] MEDS: FUROSEMIDE 40 MG TAB PO SCH (08:49)
[2018-06-20] MEDS: POTASSIUM CL 10 MEQ TAB PO SCH (08:49)
[2018-06-20] MEDS: PANTOPRAZOLE SODIUM 40 MG TAB PO SCH (08:49)
[2018-06-20] MEDS: ESCITALOPRAM OXALATE 10 MG TAB PO SCH (08:50)
[2018-06-20] MEDS: ONDANSETRON DISINTEGRATING 4 MG TAB PO PRN (12:39)
[2018-06-20] MEDS: VANCOMYCIN 1.25 GM in D5W 250 ML IV SCH ×3 (12:40→12:49)
--- NOTE | 2018-06-20 13:40 | SOAPPROG ---
SOAP Progress Note Assessment/Plan: Assessment: Debility status post T9 to S1 spinal fusion as a revision of a prior T6 to S1 spinal fusion on 06/05/2018. * Initial FIM 92 on 06/15/2018. minimal to moderate assist for bed mobility. Ambulated 100 ft with a front wheeled walker and standby assist. She has decreased endurance. 6 steps with bilateral rails with standby assist.grooming and hygiene standing with supervision and a front wheeled walker. Upper body and lower body dressing done with setup/supervision. Bathing required minimal assist; transfer required contact guard assist. Toilet transfer required close supervision and toileting was done with supervision. * Continue PT and OT to optimize mobility and activities of daily living toward the modified independent level. Bacteremia status post surgery. Cont vancomycin, per Infectious Disease. Pain management. Continue oxycodone and acetaminophen p.r.n. Hydromorphone IV was ordered per cross cover for sternal pain but not used since 06/14/2018. Also has Voltaren gel and lidocaine patch for sternal pain. Nausea. * Evaluation 06/18/2018 with normal troponin and normal EKG ruled out [place]; anginal equivalent remains a possibility. * has C/O nausea today 06/20 without any pain meds as yet. Zofran of modest benefit. Hypoxia, worse on 06/19/2018. * Elevated D-dimer 06/18/2018 may be due to postsurgical state. Ruled out pulmonary chest CT 06/19/2018. * Fluid overload/CHF appears to be responding to furosemide with 1.2 kg weight loss from 06/18/2018 to 06/19/2018. Still with pedal edema. * Continue furosemide. Adjusting dose to 40 mg q.a.m. and 20 mg at 3:00 p.m. in the afternoon starting 06/20/2018 as she had excessive urination interfering with sleep overnight 06/18/2018 to 06/19/2018. Status post hypoxemic respiratory failure. * Chest x-ray 06/14/2018 showed mild cardiomegaly and pleural effusions. * Continue oxygen. Continue incentive spirometry 10 breaths q.1 hour while awake. * Continue furosemide Hypertension. Continue current blood pressure medications and monitor her blood pressure. * D/C HCTZ while she's on furosemide. Anemia. Improving on CBC 06/13/2018 and 06/14/2018, with hemoglobin 9.1 and hematocrit 30.1. Normal MCV. Will not order iron studies. * Stable on CBC 06/16/2018. Recheck 06/20/2018. Restless leg syndrome, including upper and lower extremity symptoms. Continue pramipexole. Opiate-induced constipation, as well as nausea. Continue polyethylene glycol, senna, simethicone, and ondansetron as ordered out of the hospital. History of anxiety versus depression. Continue escitalopram. Prophylaxis. Continue enoxaparin 40 mg subcutaneous q. day at a prophylactic dose to prevent DVT. Continue famotidine for GI prophylaxis. She is to wear an [place] brace whenever she is out of bed. She has a surgical drain in place, and it is to remain in place until there is zero output. DISPOSITION: Lives with her , 16 steps to enter the home. With decreased endurance and hypoxia, it will take some time for her to accomplish goals. Discharge date set for 06/25/2018. Will have home PT and OT. Subjective: Primary complaint is nausea. Adequate pain control. Denies chest pain, cough, fevers, chills or subjective dyspnea. PLAN: Cont current rehab treatment plan. 06/20/18 13:41 Objective: Vital Signs Temp Pulse Resp BP Pulse Ox 36.6 C 59 L 16 146/45 H 85 L 06/20/18 08:00 06/20/18 08:00 06/19/18 20:00 06/20/18 08:00 06/20/18 08:00 Laboratory Results 06/20/18 05:55 06/20/18 05:55 06/19/18 06/20/18 06/21/18 05:59 05:59 04:59 Intake Total 1040 740 300 Output Total 265 1710 1050 Balance 775 -970 -750 PT 12.9 SEC (12.0-15.0) 06/18/18 10:30 INR 0.95 (0.83-1.16) 06/18/18 10:30 Physical Exam - Physical Exam General Appearance: alert, no apparent distress Neck: supple Respiratory: lungs clear Cardiac/Chest: regular rate, rhythm Abdomen: normal bowel sounds, No non-tender Skin: normal color, warm/dry Extremities: pedal edema (2+) Neuro/Psych: alert, normal mood/affect, oriented x 3 ICD10 Worksheet Patient Problems: Problems Problem Status Onset Fusion of spine of thoracolumbar region Acute
[2018-06-20] MEDS: PRAMIPEXOLE 0.25 MG TAB PO SCH ×2 (15:07→19:50)
[2018-06-20] MEDS: FUROSEMIDE 20 MG TAB PO SCH (15:07)
[2018-06-20] MEDS: DICLOFENAC SODIUM 1% 100 GM GEL TP SCH (19:49)
[2018-06-20] MEDS: PATCH REMOVAL 1 EA PATCH TD SCH (19:50)
[2018-06-21] MEDS: ESCITALOPRAM OXALATE 10 MG TAB PO SCH (09:10)
[2018-06-21] MEDS: GABAPENTIN 400 MG CAP PO SCH ×3 (09:10→20:19)
[2018-06-21] MEDS: PANTOPRAZOLE SODIUM 40 MG TAB PO SCH (09:10)
[2018-06-21] MEDS: LIDOCAINE 4%/MENTHOL 1% PATCH TD SCH (09:10)
[2018-06-21] MEDS: FUROSEMIDE 40 MG TAB PO SCH (09:10)
[2018-06-21] MEDS: ENOXAPARIN 40 MG/0.4 ML SYR SC SCH (09:10)
[2018-06-21] MEDS: POTASSIUM CL 10 MEQ TAB PO SCH (09:10)
[2018-06-21] MEDS: VANCOMYCIN 1.25 GM in D5W 250 ML IV SCH (11:58)
--- NOTE | 2018-06-21 14:23 | SOAPPROG ---
SOAP Progress Note Assessment/Plan: Assessment: 72 YO female with : Debility status post T9 to S1 spinal fusion as a revision of a prior T6 to S1 spinal fusion on 06/05/2018. * Initial FIM 92 on 06/15/2018. minimal to moderate assist for bed mobility. Ambulated 100 ft with a front wheeled walker and standby assist. She has decreased endurance. 6 steps with bilateral rails with standby assist.grooming and hygiene standing with supervision and a front wheeled walker. Upper body and lower body dressing done with setup/supervision. Bathing required minimal assist; transfer required contact guard assist. Toilet transfer required close supervision and toileting was done with supervision. * Continue PT and OT to optimize mobility and activities of daily living toward the modified independent level. Bacteremia status post surgery. Cont vancomycin, per Infectious Disease. Pain management. Continue oxycodone and acetaminophen p.r.n. Hydromorphone IV was ordered per cross cover for sternal pain but not used since 06/14/2018. Also has Voltaren gel and lidocaine patch for sternal pain. Nausea. * Evaluation 06/18/2018 with normal troponin and normal EKG ruled out WI; anginal equivalent remains a possibility. * better today. Zofran of modest benefit. Hypoxia, worse on 06/19/2018. * Elevated D-dimer 06/18/2018 may be due to postsurgical state. Ruled out pulmonary chest CT 06/19/2018. * Fluid overload/CHF appears to be responding to furosemide with 1.2 kg weight loss from 06/18/2018 to 06/19/2018. Improving pedal edema 06/21. Weight down 2- 3kg. * Continue furosemide. To be re-evaled per Dr Long Status post hypoxemic respiratory failure. * Chest x-ray 06/14/2018 showed mild cardiomegaly and pleural effusions. * Continue oxygen. Continue incentive spirometry 10 breaths q.1 hour while awake. * Continue furosemide Hypertension. Continue current blood pressure medications and monitor her blood pressure. * D/C HCTZ while she's on furosemide. Anemia. Improving on CBC 06/13/2018 and 06/14/2018, with hemoglobin 9.1 and hematocrit 30.1. Normal MCV. Will not order iron studies. * Stable on CBC 06/16/2018. Recheck 06/20/2018. Restless leg syndrome, including upper and lower extremity symptoms. Continue pramipexole. Opiate-induced constipation, as well as nausea. Continue polyethylene glycol, senna, simethicone, and ondansetron as ordered out of the hospital. History of anxiety versus depression. Continue escitalopram. Prophylaxis. Continue enoxaparin 40 mg subcutaneous q. day at a prophylactic dose to prevent DVT. Continue famotidine for GI prophylaxis. She is to wear an [place] brace whenever she is out of bed. She has a surgical drain in place, and it is to remain in place until there is zero output. DISPOSITION: Patient hopeing to be D/C'd sooner. Lives with her , 16 steps to enter the home. With decreased endurance and hypoxia, it will take some time for her to accomplish goals. Discharge date set for 06/25/2018. Will have home PT and OT. Subjective: Asking to be D/C'ed in am 11/ Nausea improved. Making good progress in therapies. Adequate pain control. Denies chest pain, cough, fevers, chills or subjective dyspnea. PLAN: Cont current rehab treatment plan. 06/21/18 14:23 Objective: Vital Signs Temp Pulse Resp BP Pulse Ox 37.2 C 71 18 131/64 H 92 06/21/18 06:07 06/21/18 06:07 06/21/18 06:07 06/21/18 06:07 06/21/18 06:07 Laboratory Results 06/20/18 05:55 06/20/18 05:55 06/20/18 06/21/18 06/22/18 06:59 05:59 05:59 Intake Total 730 Output Total Balance 730 PT 12.9 SEC (12.0-15.0) 06/18/18 10:30 INR 0.95 (0.83-1.16) 06/18/18 10:30 Physical Exam - Physical Exam General Appearance: alert, no apparent distress Neck: supple Respiratory: lungs clear Cardiac/Chest: regular rate, rhythm Skin: normal color, warm/dry Extremities: pedal edema (2+) ICD10 Worksheet Patient Problems: Problems Problem Status Onset Fusion of spine of thoracolumbar region Acute
[2018-06-21] MEDS: FUROSEMIDE 20 MG TAB PO SCH (14:31)
[2018-06-21] MEDS: CALCIUM CARBONATE 500 MG CHEWABLE TAB PO PRN (14:31)
[2018-06-21] MEDS: PRAMIPEXOLE 0.25 MG TAB PO SCH ×2 (14:31→20:19)
--- NOTE | 2018-06-21 14:52 | CPEKG ---
Test Reason : OPEN Blood Pressure : / mmHG Vent. Rate : 062 BPM Atrial Rate : 061 BPM P-R Int : 168 ms QRS Dur : 084 ms QT Int : 404 ms P-R-T Axes : 037 031 031 degrees QTc Int : 411 ms SINUS RHYTHM Confirmed by Munir Singer ([id number]) on 06/21/2018 2:51:36 PM Referred By: Confirmed By:Munir Singer
[2018-06-21] MEDS: DICLOFENAC SODIUM 1% 100 GM GEL TP SCH (20:20)
[2018-06-21] MEDS: PATCH REMOVAL 1 EA PATCH TD SCH (20:30)
[2018-06-22 06:38] VITALS: BP 137/61
[2018-06-22] MEDS ORDERED: HYDROCHLOROTHIAZIDE 25 MG TAB PO SCH (09:00)
[2018-06-22] MEDS: LIDOCAINE 4%/MENTHOL 1% PATCH TD SCH (09:10)
[2018-06-22] MEDS ORDERED: ONDANSETRON DISINTEGRATING 4 MG TAB PO PRN (09:13)
[2018-06-22] MEDS: PANTOPRAZOLE SODIUM 40 MG TAB PO SCH (09:18)
[2018-06-22] MEDS: ESCITALOPRAM OXALATE 10 MG TAB PO SCH (09:23)
[2018-06-22] MEDS: ENOXAPARIN 40 MG/0.4 ML SYR SC SCH (10:58)
[2018-06-22] MEDS: GABAPENTIN 400 MG CAP PO SCH (10:58)
[2018-06-22] MEDS: FUROSEMIDE 40 MG TAB PO SCH (10:58)
[2018-06-22] MEDS: POTASSIUM CL 10 MEQ TAB PO SCH (10:59)
[2018-06-22] MEDS: VANCOMYCIN 1.25 GM in D5W 250 ML IV SCH (11:30)
--- NOTE | 2018-06-22 12:16 | PDOREHIP ---
Admission IRF-TOM - Admission - 3 Day Assessment Period Admission Date/Day 1: 06/12/18 Day 2: 06/13/18 Day 3: 06/14/18 - Active Diagnoses Comorbidities and Co-existing Conditions at Admission: [id number]. None of the Above Discharge IRF-TOM - Discharge - 3 Day Assessment Period 2 Days Prior to Anticipated Discharge Date: 06/21/18 1 Day Prior to Anticipated Discharge Date: 06/22/18 Anticipated Discharge Date: 06/23/18 - Discharge Skin Conditions Unhealed Pressure Ulcer (1 or more/Stage 1 or >)-Discharge: 0. No # Stage 1 Pressure Ulcers-Discharge: 0 # Stage 2 Pressure Ulcers-Discharge: 0 # of These Stage 2 Pressure Ulcers Present on Admission: 0 # Stage 3 Pressure Ulcers-Discharge: 0 # of These Stage 3 Pressure Ulcers Present on Admission: 0 # Stage 4 Pressure Ulcers-Discharge: 0 # of These Stage 4 Pressure Ulcers Present on Admission: 0 # Unstageable Pressure Ulcers (Non-remove Dress)-Discharge: 0 # These Unstageable Pressure Ulcers (NRD)-Present on Admit: 0 # Unstageable Pressure Ulcers (Slough/Eschar)-Discharge: 0 # These Unstageable Pressure Ulcers(Slough) Present on Admit: 0 # Unstageable Pressure Ulcers (Deep Tissue Injury)-Discharge: 0 # These Unstageable Pressure Ulcers (DTI) Present on Admit: 0
[2018-06-22] MEDS ORDERED: DAPTOmycin 500 MG in NS 100 ML IV SCH (14:00)
--- NOTE | 2018-06-22 15:39 | GDS ---
ADMISSION DIAGNOSIS: Debility, status post revision of T9 to sacrum, spinal fusion, with T6 to sacru m spinal fusion. OTHER DISCHARGE DIAGNOSES: 1. Spinal wound infection and bacteremia. 2. Hypoxia. COMPLICATIONS: There were none. PROCEDURES: She had a CT pulmonary angiogram which ruled out pulmonary embolus. CONSULTATIONS: Infectious Disease, Dr. Hansen. HISTORY AND HOSPITAL COURSE: This patient was admitted from [facility] where she had surger y by Dr. Kuhn for a revision of a recent T9-S1 lumbar fusion surgery. She had recurrent candy n. A T6 to sacrum surgery was performed including removal of a screw at L5 which was impinging on the nerve and causing pain. She had a postoperative infection with coagulase-negative staphylococcus an d treatment with vancomycin was initiated in the hospital. She had anemia which required blood trans fusion. She had acute hypoxic respiratory failure and an acute toxic encephalopathy. There was ches t wall pain. A CT chest was done in the hospital which ruled out pulmonary embolus or other etiologi es for her chest wall pain. An echocardiogram showed diastolic dysfunction. She did well in rehabilitation. Her initial functional independence measure was 92 on 06/15/2018, wh ich is consistent with assisted living level of function. She had advanced to 114 on 06/22/2018, whi ch is consistent with independent function. She was independent with bed mobility and transfers. Luke martinez ambulated 300 feet with a front-wheeled walker. She climbed and descended 16 stairs with standby a ssist. She was independent in her room. She was independent with activities of daily living and she accomplished a kitchen task. Pain was adequately controlled and she had not used oxycodone since 06/20/2018. Her sternal pain imp roved with Voltaren gel and lidocaine patch and on the day of discharge, she desires only to use lido royal patch. She had hypoxia which worsened during her stay. There was an elevated D-dimer found. CT angiogram w as done on 06/19/2018, which ruled out a pulmonary embolus. She had pleural effusions. She also had fluid overload with edema and JVD. She was treated with furosemide, which was titrated to 40 mg in the morning and 20 mg in the afternoon. She diuresed well. Her weight decreased from 88 kg on 06/18 to 83.4 kg on 06/22/2018. Furosemide was discontinued on the day of discharge and she is to re sume her home hydrochlorothiazide on the day after discharge. Regarding her bacteremia, vancomycin was continued. Dose was tapered as she was supratherapeutic on vancomycin trough checks. She had episodes of nausea, which responded to ondansetron, though it would make her tired. She had a cardiac evaluation in case the nausea was consistent with an anginal equivalent. Troponin was nega tive and EKG was normal. She reported that the amylase and lipase were normal and liver function chandan ts were normal. She reported that she had intermittent nausea often prior to her hospitalization. She had anemia with a hemoglobin of 8.9 and hematocrit of 28.8 on admission. This was stable overall , but on 06/20/2019, she had a decline in hemoglobin and hematocrit to 8.1 and 26.6. She should have followup testing regarding her anemia. DISCHARGE PLAN: Condition upon discharge is good. ACTIVITY: Ad daxa. DIET: Regular. WOUND CARE: She is to continue the drain which was placed postsurgically and the sutures were not re moved from her incision. She will have follow up with Neurosurgery regarding these issues. There wa s no sign or symptom of wound infection. MEDICATIONS UPON DISCHARGE: 1. Acetaminophen 325 mg p.o. daily p.r.n. 2. Alteplase 2 mg IV push p.r.n. PICC line occlusion. 3. Escitalopram 10 mg p.o. daily. 4. Gabapentin 300 mg p.o. three times daily, but she may choose to use this medication on a p.r.n. b asis. 5. Hydrochlorothiazide 12.5 mg p.o. daily. 6. Lidocaine 4% transdermal patch to her sternum daily. 7. Metoprolol XR 12.5 mg p.o. at bedtime. 8. Ondansetron 4 mg p.o. daily p.r.n. 9. Oxycodone 5 to 10 mg p.o. q.3 hours p.r.n. 10. Pramipexole 0.25 mg p.o. twice daily. 11. Senna p.r.n. 12. Simethicone p.r.n. 13. Vancomycin 1.25 mg IV daily through July 17, 2018. ISSUES TO BE ADDRESSED AT FOLLOW UP: 1. Functional status regarding mobility and ADLs. She will continue home PT and OT. She can follow up with her primary care provider. 2. Bacteremia. Continue IV vancomycin. She will get this daily at the infusion center at the [facility] and further laboratory testing and followup will be per Dr. Hansen of Infectious Disease. 3. Fluid overload and CHF. She will continue nocturnal oxygen and she can follow up with her primar care provider. 4. Nausea is chronic. Unclear whether there is any followup necessary. She can use ondansetron on a p.r.n. basis. 5. Hypertension. Continue metoprolol and hydrochlorothiazide and follow up with primary care. 6. Anemia. She will have repeat CBCs done routinely in monitoring of her infection and use of vanco mycin. If anemia does not improve, further evaluation can be done either by Infectious Disease or pr imary care. Greater than 30 minutes were spent on this discharge summary including coordination of care, medicati on reconciliation, and counseling patient and . Copy requested to: Makayla Draper /[id number]/MODL
[2018-06-22] MEDS: PRAMIPEXOLE 0.25 MG TAB PO SCH (15:46)
[2018-06-22] MEDS ORDERED: GABAPENTIN 300 MG CAP PO SCH (16:00)
[2018-06-23] MEDS ORDERED: VANCOMYCIN 1.25 GM in D5W 250 ML IV SCH (11:30)
== END 2018-06-22 17:35 | disposition home health service (06) | DRG 560 ==
LOC: BREH 06-12 13:30
PROVIDERS: ADMIT Internal Medicine; ATTEND Internal Medicine
DX: Z47.89 Encounter for other orthopedic aftercare (principal); Z98.1 Arthrodesis status; M41.86 Other forms of scoliosis, lumbar region; R26.89 Other abnormalities of gait and mobility; R78.81 Bacteremia; T81.49XA Infection following a procedure, other surgical site, initial encounter; D64.9 Anemia, unspecified; G25.81 Restless legs syndrome; K59.03 Drug induced constipation; F32.9 Major depressive disorder, single episode, unspecified; F41.9 Anxiety disorder, unspecified; R53.81 Other malaise; R09.02 Hypoxemia; R11.0 Nausea; I11.0 Hypertensive heart disease with heart failure; I50.9 Heart failure, unspecified
CPT/HCPCS: 97110-GO; 97110-GP; 97116-GP; 97162-GP; 97166-GO; 97530-GO; 97530-GP; 97535-GO; C1751; G0515-GO; J0878; J1170; J1650; J2997; J3370; Q9967

== ENCOUNTER → 2018-08-26 | Outpatient (CLI) | payer OTHER, MEDICARE | LOC: BHLMT 10:00 | PROVIDERS: ATTEND Internal Medicine Interventional Cardiology | DX: R00.2 Palpitations (principal) | CPT/HCPCS: 93306-PO ==